=== PATIENT | male | born 1945 | race Caucasian/White ===

== ENCOUNTER 2017-01-04 09:38 | Observation (INO) ==
[2017-01-04] MEDS ORDERED: Dicyclomine 20 MG/2 ML AMPUL IM STA (10:13)
--- NOTE | 2017-01-04 10:16 | Emergency Department Note ---
Disposition Clinical Impression: Abdominal pain, Rectal bleeding, Coagulopathy Disposition: Admitted As Inpatient Condition: Good Abdominal Pain HPI - General Chief Complaint: ED Abdominal Pain Stated Complaint: abd pain Time Seen by Provider: 01/04/17 09:43 Source: patient - History of Present Illness HPI Narrative: Abdominal pain started after a bowel movement last night. Said he had a normal bowel movement, maybe a little bit soft, that was mixed with a red material that he thought was blood. Says it was a 50-50 mixture, not just blood streaking. Pain started after the bowel movement, says he felt like he was being cut with a knife. He points to the supraumbilical region to indicate where the pain is. No nausea or vomiting. No fever. No urinary tract symptoms. He has been taking his Coumadin as prescribed, says he had an INR checked recently. He is on Coumadin for a DVT. Pain was at its most intense when he called the ambulance, currently still present and significant but not as bad as it was earlier this morning. Pain Scale: 8 - Related Data Home Medications Medication Instructions Recorded Confirmed Albuterol Sulfate [Proair 90 mcg IH Q4H PRN 05/08/15 01/04/17 Respiclick] Cholecalciferol (Vitamin D3) 1,000 unit PO DAILY 05/08/15 01/04/17 [Vitamin D3] Exenatide Microspheres [Bydureon 2 mg SQ QWEEK 05/08/15 01/04/17 Pen] Fenofibric Acid (Choline) 135 mg PO DAILY 05/08/15 01/04/17 [Trilipix] Fexofenadine HCl 180 mg PO DAILY 05/08/15 01/04/17 Fluticasone Propionate Nasal 1 aerosol NS DAILY 05/08/15 01/04/17 [Flonase] Furosemide [Lasix] 20 mg PO TID 05/08/15 01/04/17 Gabapentin [Neurontin] 600 mg PO TID 05/08/15 01/04/17 Glimepiride [Amaryl] 4 mg PO DAILY 05/08/15 01/04/17 Loratadine [Claritin] 10 mg PO DAILY 05/08/15 01/04/17 Losartan Potassium [Cozaar] 100 mg PO DAILY 05/08/15 01/04/17 Metformin HCl [Fortamet] 1,000 mg PO BID 05/08/15 01/04/17 Montelukast Sodium [Singulair] 10 mg PO DAILY 05/08/15 01/04/17 Pantoprazole Sodium [Protonix] 40 mg PO DAILY 05/08/15 01/04/17 Phenytoin Sodium Extended 100 mg PO TID 05/08/15 01/04/17 [Phenytek] Potassium Chloride [K-Tab ER] 20 meq PO BID 05/08/15 01/04/17 Pravastatin Sodium [Pravachol] 40 mg PO DAILY 05/08/15 01/04/17 Ranitidine HCl [Zantac] 150 mg PO BID 05/08/15 01/04/17 Warfarin [Coumadin] 4 mg PO SUTUTHFRSA 05/08/15 01/04/17 hydrOXYzine pamoate [HydrOXYzine 25 mg PO TID 05/08/15 01/04/17 Pamoate] Insulin Glargine,Hum.rec.anlog 15 units SQ DAILY 01/04/17 01/04/17 [Toujeo Solostar] Rosuvastatin [Crestor] 40 mg PO HS 01/04/17 01/04/17 Warfarin [Coumadin] 6 mg PO MOWE 01/04/17 01/04/17 Previous Rx's Medication Instructions Recorded Ciprofloxacin [Cipro] 500 mg PO BID #5 tablet 01/09/17 metroNIDAZOLE [Flagyl] 500 mg PO TID #7 tablet 01/09/17 Allergies Allergy/AdvReac Type Severity Reaction Status Date / Time No Known Allergies Allergy Verified 05/08/15 10:26 All systems ED: reviewed and negative except as stated. Abdominal Pain PMH - Past Medical History Medical history: Reports: arthritis, DVT, diabetes, GERD, hyperlipidemia, hypertension, osteoporosis, seizures, venous stasis, other. Denies: CHF, coronary artery disease Psychiatric history: Reports: no psych history - Social History Smoking status: Former smoker Alcohol use: Reports: none Drug use: Reports: none Physical Exam Vital signs noted please see nurse's notes. Gen.: Well-developed, well-nourished patient lying in bed who appears nontoxic. Head: Atraumatic, normocephalic. Eyes: Sclerae anicteric. Conjunctiva pink. ENT: Mucous membranes moist. Heart: Regular rate and rhythm without appreciable murmur. Heart rate between 80 and 110 on the monitor. Lungs: Normal respiratory pattern without respiratory distress, lungs clear to auscultation bilaterally. Abdomen: Soft, nontender, nondistended, no guarding or peritoneal signs. Skin: Warm and dry without rash. Neurologic: Awake, alert with normal speech and mental status. No focal deficits or lateralizing signs. Psychiatric: Appropriate mood and affect. - General Limitations: no limitations General appearance: alert, in no apparent distress Course Course Narrative: Pt checked out to Dr. Andrade at change of shift with work up pending. Vital Signs Temperature 97.5 F L 01/04/17 09:39 Pulse Rate 99 01/04/17 09:39 Respiratory Rate 16 01/04/17 09:39 Blood Pressure 169/91 01/04/17 09:39 O2 Sat by Pulse Oximetry 94 01/04/17 09:39 Temperature 97.9 F 01/09/17 14:56 Pulse Rate 76 01/09/17 14:56 Respiratory Rate 16 01/09/17 14:56 Blood Pressure 123/77 01/09/17 14:56 O2 Sat by Pulse Oximetry 97 01/09/17 14:56 Oxygen Delivery Oxygen Delivery Room Air Abdominal Pain - Lab Data Result diagrams: 01/07/17 02:43 01/07/17 02:43 Lab Results 01/04/17 01/04/17 01/04/17 Range/Units 09:55 09:55 09:55 WBC 10.0 (4.3-11.1) K/mcL RBC 4.64 (4.19-5.50) M/mcL Hgb 13.9 (12.9-16.9) g/dL Hct 39.6 (37.5-50.1) % MCV 85.3 (83.0-100.0) fL MCH 30.0 (28.0-33.3) pg MCHC 35.1 (31.6-35.5) g/dL RDW 12.9 (11.5-14.5) % Plt Count 205 (140-400) K/mcL MPV 11.0 (9.4-12.4) fL PT 23.9 H (9.4-12.1) Seconds INR 2.2 Sodium 135 L (136-145) mEq/L Potassium 4.0 (3.5-4.5) mEq/L Chloride 97 L (98-109) mEq/L Carbon Dioxide 28 (19-29) mEq/L BUN 16 (8-26) mg/dL Creatinine 1.05 (0.72-1.25) mg/dL Est GFR ( Amer) > 60 (> 60) Est GFR (Non-Af Amer) > 60 (> 60) BUN/Creatinine Ratio 15 (6-26) Glucose 394 H (70-99) mg/dL Est Mean Plasma Glucose mg/dl Hemoglobin A1c ( - 5.6) % Calculated Osmolality 298 (280-300) Calcium 9.7 (8.6-10.8) mg/dL Urine Color (Yellow) Urine Clarity (Clear) Urine pH (5.0-8.0) pH Units Ur Specific [place] (1.010-1.025) Urine Protein (Neg-Trace) mg/dL Urine Glucose (UA) (Normal) mg/dL Urine Ketones (Negative) mg/dL Urine Blood (Negative) Urine Nitrite (Negative) Urine Bilirubin (Negative) Urine Urobilinogen (Normal) mg/dL Ur Leukocyte Esterase (Negative) Urine Microscopic RBC (0-3) per hpf Urine Microscopic WBC (0-3) per hpf Ur Squamous Epith Cells (None-Few) per lpf Urine Bacteria (None-Few) per hpf Hyaline Casts (None-Few) per lpf Phenytoin 2.8 L (10-20) mcg/mL Blood Type Antibody Screen 01/04/17 01/04/17 01/04/17 Range/Units 09:55 11:00 11:52 WBC (4.3-11.1) K/mcL RBC (4.19-5.50) M/mcL Hgb (12.9-16.9) g/dL Hct (37.5-50.1) % MCV (83.0-100.0) fL MCH (28.0-33.3) pg MCHC (31.6-35.5) g/dL RDW (11.5-14.5) % Plt Count (140-400) K/mcL MPV (9.4-12.4) fL PT (9.4-12.1) Seconds INR Sodium (136-145) mEq/L Potassium (3.5-4.5) mEq/L Chloride (98-109) mEq/L Carbon Dioxide (19-29) mEq/L BUN (8-26) mg/dL Creatinine (0.72-1.25) mg/dL Est GFR ( Amer) (> 60) Est GFR (Non-Af Amer) (> 60) BUN/Creatinine Ratio (6-26) Glucose (70-99) mg/dL Est Mean Plasma Glucose 326 mg/dl Hemoglobin A1c 13.0 H ( - 5.6) % Calculated Osmolality (280-300) Calcium (8.6-10.8) mg/dL Urine Color Yellow (Yellow) Urine Clarity Cloudy A (Clear) Urine pH 6.5 (5.0-8.0) pH Units Ur Specific [place] 1.028 H (1.010-1.025) Urine Protein 100 H (Neg-Trace) mg/dL Urine Glucose (UA) >=1000 H (Normal) mg/dL Urine Ketones 15 H (Negative) mg/dL Urine Blood Moderate H (Negative) Urine Nitrite Negative (Negative) Urine Bilirubin Negative (Negative) Urine Urobilinogen Normal (Normal) mg/dL Ur Leukocyte Esterase Trace H (Negative) Urine Microscopic RBC 5-15 H (0-3) per hpf Urine Microscopic WBC 30-50 H (0-3) per hpf Ur Squamous Epith Cells Few (None-Few) per lpf Urine Bacteria None Seen (None-Few) per hpf Hyaline Casts None Seen (None-Few) per lpf Phenytoin (10-20) mcg/mL Blood Type O POSITIVE Antibody Screen NEGATIVE
[2017-01-04 10:22] LABS: Hematocrit 39.6 % (37.5-50.1); Hemoglobin 13.9 g/dL (12.9-16.9); Mean Corpuscular HGB Conc 35.1 g/dL (31.6-35.5); Mean Corpuscular Volume 85.3 fL (83.0-100.0); Platelet Count 205 K/mcL (140-400); Red Blood Count 4.64 M/mcL (4.19-5.50); Red Cell Distribution Width 12.9 % (11.5-14.5)
[2017-01-04 10:28] LABS: INR 2.2; Prothrombin Time 23.9 Seconds (9.4-12.1)
[2017-01-04 10:35] LABS: BUN/Creatinine Ratio 15 (6-26); Blood Urea Nitrogen 16 mg/dL (8-26); Calcium 9.7 mg/dL (8.6-10.8); Carbon Dioxide 28 mEq/L (19-29); Chloride 97 mEq/L (98-109); Glucose 394 mg/dL (70-99); Osmolality,Calculated 298 (280-300); Sodium 135 mEq/L (136-145); eGFR For African Americans > 60 (> 60); eGFR For Non-African Americans > 60 (> 60)
[2017-01-04 11:10] LABS: Phenytoin (Dilantin) 2.8 mcg/mL (10-20)
[2017-01-04 11:16] LABS: Bilirubin,Urine Negative (Negative); Blood,Urine Moderate (Negative); Clarity,Urine Cloudy (Clear); Color,Urine Yellow (Yellow); Glucose,Urine (UA) >=1000 mg/dL (Normal); Ketones,Urine 15 mg/dL (Negative); Leukocyte Esterase,Urine Trace (Negative); Nitrite,Urine Negative (Negative); PH,Urine 6.5 pH Units (5.0-8.0); Protein,Urine 100 mg/dL (Neg-Trace); Specific Gravity,Urine 1.028 (1.010-1.025); Urobilinogen,Urine Normal (Normal)
[2017-01-04 11:18] LABS: Bacteria,Urine None Seen per hpf (None-Few); Hyaline Casts,Urine None Seen per lpf (None-Few); Squamous Epithelial Cell,Urine Few per lpf (None-Few)
[2017-01-04 11:26] LABS: WBC,Urine 30-50 per hpf (0-3)
--- NOTE | 2017-01-04 11:40 | Emergency Department Note ---
Disposition Clinical Impression: Rectal bleeding, Coagulopathy Abdominal pain Qualifiers: Abdominal location: lower abdomen, unspecified Qualified Code(s): R10.30 - Lower abdominal pain, unspecified Disposition: Admitted As Inpatient Condition: Fair Time of Disposition: 12:49 General Adult HPI - General Chief complaint: ED Abdominal Pain Stated complaint: abd pain Time Seen by Provider: 01/04/17 09:43 Source: patient Limitations: no limitations - History of Present Illness Pain Scale: 8 - Related Data Home Medications Medication Instructions Recorded Confirmed Albuterol Sulfate [Proair 90 mcg IH AD 05/08/15 05/08/15 Respiclick] Albuterol Sulfate [Proair 90 mcg IH Q4H PRN 05/08/15 05/08/15 Respiclick] Cholecalciferol (Vitamin D3) 1,000 unit PO DAILY 05/08/15 05/08/15 [Vitamin D3] Exenatide Microspheres [Bydureon 2 mg SQ AD 05/08/15 05/08/15 Pen] Fenofibric Acid (Choline) 135 mg PO DAILY 05/08/15 05/08/15 [Trilipix] Fenofibric Acid (Choline) 135 mg PO DAILY 05/08/15 05/08/15 [Trilipix] Fexofenadine HCl 180 mg PO DAILY 05/08/15 05/08/15 Fluticasone Propionate Nasal 1 aerosol NS DAILY 05/08/15 05/08/15 [Flonase] Furosemide [Lasix] 20 mg PO AD 05/08/15 05/08/15 Gabapentin [Neurontin] 600 mg PO TID 05/08/15 05/08/15 Glimepiride [Amaryl] 2 mg PO 0800 05/08/15 05/08/15 Guaifenesin [Mucinex] 600 mg PO BID 05/08/15 05/08/15 Loratadine [Claritin] 10 mg PO DAILY 05/08/15 05/08/15 Losartan Potassium [Cozaar] 100 mg PO DAILY 05/08/15 05/08/15 Metformin HCl [Fortamet] 500 mg PO QID 05/08/15 05/08/15 Montelukast Sodium [Singulair] 10 mg PO DAILY 05/08/15 05/08/15 Pantoprazole Sodium [Protonix] 40 mg PO DAILY 05/08/15 05/08/15 Phenytoin Sodium Extended 100 mg PO TID 05/08/15 05/08/15 [Phenytek] Potassium Chloride [K-Tab ER] 20 meq PO BID 05/08/15 05/08/15 Pravastatin Sodium [Pravachol] 40 mg PO DAILY 05/08/15 05/08/15 Ranitidine HCl [Zantac] 150 mg PO BID 05/08/15 05/08/15 Sulfamethoxazole/Trimeth DS 1 each PO BID 05/08/15 05/08/15 [Bactrim DS] Warfarin [Coumadin] 4 mg PO AD 05/08/15 05/08/15 cephALEXin [Keflex] 500 mg PO QID 05/08/15 05/08/15 hydrOXYzine pamoate [HydrOXYzine 25 mg PO TID 05/08/15 05/08/15 Pamoate] Allergies Allergy/AdvReac Type Severity Reaction Status Date / Time No Known Allergies Allergy Verified 05/08/15 10:26 Past Medical History - Past Medical History Medical history: Reports: arthritis, DVT, diabetes, GERD, hyperlipidemia, hypertension, osteoporosis, seizures, venous stasis, other. Denies: CHF, coronary artery disease Surgical history: Reports: appendectomy, orthopedic, other, other Psychiatric history: Reports: no psych history - Social History Smoking Status: Former smoker Smokeless Tobacco Status: No Alcohol use: Reports: none Drug use: Reports: none Physical Exam - General Limitations: no limitations General appearance: alert, in no apparent distress - Abdominal Exam Abdominal exam: Present: soft, tenderness. Absent: guarding, rebound - Rectal Exam Rectal exam: Present: heme (+) stool Course - Reevaluation(s) Reevaluation #1: 31-year-old who is on blood thinners initially seen by the daysnhft evaluated and orders placed. Patient has had a bloody bowel movement. He is on Coumadin. Physical examination he has mild tenderness across the abdomen. Time: 11:36 - Consultations Consultation #1: Discussed with Murali Padilla, it. Time: 12:48 Consultation #2: Discussed with , will see in consult Time: 12:50 Vital Signs Temperature 97.5 F L 01/04/17 09:39 Pulse Rate 99 01/04/17 09:39 Respiratory Rate 16 01/04/17 09:39 Blood Pressure 169/91 01/04/17 09:39 O2 Sat by Pulse Oximetry 94 01/04/17 09:39 Temperature 97.5 F L 01/04/17 09:39 Pulse Rate 94 01/04/17 12:34 Respiratory Rate 16 01/04/17 12:34 Blood Pressure 169/72 01/04/17 12:34 O2 Sat by Pulse Oximetry 97 01/04/17 12:34 Oxygen Delivery Oxygen Delivery Room Air Medical Decision Making - Lab Data Lab results reviewed: Yes I reviewed the patient's lab results. Result diagrams: 01/04/17 09:55 01/04/17 09:55 Lab Results 01/04/17 01/04/17 01/04/17 Range/Units 09:55 09:55 09:55 WBC 10.0 (4.3-11.1) K/mcL RBC 4.64 (4.19-5.50) M/mcL Hgb 13.9 (12.9-16.9) g/dL Hct 39.6 (37.5-50.1) % MCV 85.3 (83.0-100.0) fL MCH 30.0 (28.0-33.3) pg MCHC 35.1 (31.6-35.5) g/dL RDW 12.9 (11.5-14.5) % Plt Count 205 (140-400) K/mcL MPV 11.0 (9.4-12.4) fL PT 23.9 H (9.4-12.1) Seconds INR 2.2 Sodium 135 L (136-145) mEq/L Potassium 4.0 (3.5-4.5) mEq/L Chloride 97 L (98-109) mEq/L Carbon Dioxide 28 (19-29) mEq/L BUN 16 (8-26) mg/dL Creatinine 1.05 (0.72-1.25) mg/dL Est GFR ( Amer) > 60 (> 60) Est GFR (Non-Af Amer) > 60 (> 60) BUN/Creatinine Ratio 15 (6-26) Glucose 394 H (70-99) mg/dL Calculated Osmolality 298 (280-300) Calcium 9.7 (8.6-10.8) mg/dL Urine Color (Yellow) Urine Clarity (Clear) Urine pH (5.0-8.0) pH Units Ur Specific [place] (1.010-1.025) Urine Protein (Neg-Trace) mg/dL Urine Glucose (UA) (Normal) mg/dL Urine Ketones (Negative) mg/dL Urine Blood (Negative) Urine Nitrite (Negative) Urine Bilirubin (Negative) Urine Urobilinogen (Normal) mg/dL Ur Leukocyte Esterase (Negative) Urine Microscopic RBC (0-3) per hpf Urine Microscopic WBC (0-3) per hpf Ur Squamous Epith Cells (None-Few) per lpf Urine Bacteria (None-Few) per hpf Hyaline Casts (None-Few) per lpf Phenytoin 2.8 L (10-20) mcg/mL Blood Type Antibody Screen 01/04/17 01/04/17 Range/Units 11:00 11:52 WBC (4.3-11.1) K/mcL RBC (4.19-5.50) M/mcL Hgb (12.9-16.9) g/dL Hct (37.5-50.1) % MCV (83.0-100.0) fL MCH (28.0-33.3) pg MCHC (31.6-35.5) g/dL RDW (11.5-14.5) % Plt Count (140-400) K/mcL MPV (9.4-12.4) fL PT (9.4-12.1) Seconds INR Sodium (136-145) mEq/L Potassium (3.5-4.5) mEq/L Chloride (98-109) mEq/L Carbon Dioxide (19-29) mEq/L BUN (8-26) mg/dL Creatinine (0.72-1.25) mg/dL Est GFR ( Amer) (> 60) Est GFR (Non-Af Amer) (> 60) BUN/Creatinine Ratio (6-26) Glucose (70-99) mg/dL Calculated Osmolality (280-300) Calcium (8.6-10.8) mg/dL Urine Color Yellow (Yellow) Urine Clarity Cloudy A (Clear) Urine pH 6.5 (5.0-8.0) pH Units Ur Specific [place] 1.028 H (1.010-1.025) Urine Protein 100 H (Neg-Trace) mg/dL Urine Glucose (UA) >=1000 H (Normal) mg/dL Urine Ketones 15 H (Negative) mg/dL Urine Blood Moderate H (Negative) Urine Nitrite Negative (Negative) Urine Bilirubin Negative (Negative) Urine Urobilinogen Normal (Normal) mg/dL Ur Leukocyte Esterase Trace H (Negative) Urine Microscopic RBC 5-15 H (0-3) per hpf Urine Microscopic WBC 30-50 H (0-3) per hpf Ur Squamous Epith Cells Few (None-Few) per lpf Urine Bacteria None Seen (None-Few) per hpf Hyaline Casts None Seen (None-Few) per lpf Phenytoin (10-20) mcg/mL Blood Type O POSITIVE Antibody Screen NEGATIVE - EKG Data EKG #1 EKG shows normal: sinus rhythm Rate: normal Rhythm: NSR, PAC's Interpretation: no acute changes
[2017-01-04] MEDS ORDERED: Naloxone 0.4 MG/ML INJ IVP PRN (13:41)
[2017-01-04] MEDS ORDERED: Acetaminophen 325 MG TABLET PO PRN (13:41)
[2017-01-04] MEDS ORDERED: Ondansetron 4 MG/2 ML VIAL IVP PRN (13:41)
--- NOTE | 2017-01-04 14:10 | Internal Med History&Physical ---
<Lili Leal - Last Filed: 01/04/17 14:43> Date of Encounter: 01/04/17 Time of Encounter: 14:08 Assessment and Plan (1) Rectal bleeding Current visit: Yes Status: Acute CT abdomen/pelvis showed no acute intra abdominal abnormality identified. cholelithiasis present without acute cholecystitis. moderate fatty infiltration of the liver. patient has severe cynthia umbillical abdominal pain with palpation. patient states he had colonoscopy with "cancerous polyp" removed but no record of this could be found in [employer] or [facility]. ER document states positive stool guiac. Plan: hold warfarin re check INR tomorrow NPO IV PPI BID consult to gastroenterology for possible EGD/colonoscopy. H/H Q6Hr (2) Abdominal pain Current visit: Yes Status: Acute plan as above Qualifiers: Abdominal location: periumbilical Qualified Code(s): R10.33 - Periumbilical pain (3) Diabetes Current visit: Yes Status: Acute sugars in 300s. NPO 10 units Levemir HS with low dose sliding scale, Q4Hour accuchecks. hold metformin and amaryl Qualifiers: Diabetes mellitus type: type 2 Diabetes mellitus complication status: with kidney complications Diabetes mellitus complication detail: with microalbuminuria Diabetes mellitus nursing home insulin use: with intermodal owner operator truck driver use Qualified Code(s): E11.29 - Type 2 diabetes mellitus with other diabetic kidney complication; R80.9 - Proteinuria, unspecified; R80.9 - Proteinuria, unspecified; Z79.4 - medical terminologist (current) use of insulin; Z79.4 - [facility] ( current) use of insulin; Z79.4 - [facility] (current) use of insulin; Z79.4 - medical terminologist (current) use of insulin (4) Seizure disorder Current visit: Yes Status: Acute resume phenytoin (5) Hypertension Current visit: Yes Status: Acute resume losartan. IV hydralazine PRN Qualifiers: Hypertension type: unspecified Qualified Code(s): I10 - Essential (primary ) hypertension (6) UTI (urinary tract infection) Current visit: Yes Status: Acute ceftriaxone day 1 Qualifiers: Urinary tract infection type: site unspecified Hematuria presence: without hematuria Qualified Code(s): N39.0 - Urinary tract infection, site not specified (7) DVT prophylaxis Current visit: Yes Status: Acute EP[facility] pharmacy to dose warfarin. But hold for now in setting of GI bleed. Internal Medicine - H&P: HPI Chief complaint: abdominal pain Admitted From: Emergency Dept Plans for Post Hospital Care: Home History of present illness: Mr. Douglass is a 71 year old male with PMHx of seizure disorder, HLD, type 2 DM, DVT, osteoporosis, HTN, osteoarthritis. patient is a very poor historian. Patient states he lives at home by himself. He arrived to the ED today with chief complaint of abdominal pain 8/10 that started last night. He describes the pain as sharp and he states he has noticed bright red blood in his bowel movements that started last night as well. patient states that he is on warfarin for DVT he had in 2009 after knee surgery. he denies history of Afib. called his PCP office today to confirm why he is on warfarin. Was told that they are not prescribing it to him, but patient states he takes warfarin regularly, and labs showed INR of 2.2. Per [facility], last coumadin clinic note from 2014 states he is on warfarin for "chronic thromboembolism." Patient states he had a colonoscopy in the past with "cancerous polyp" removed, but cannot recall when his colonoscopy was. no records can be found from prior colonoscopies. he admits to having night sweats last night. he denies nausea, vomiting, diarrhea, fever, chills, chest pain, shortness of breath. Past Med Surg Social Fam HX - Past Medical History Medical history: arthritis, DVT, diabetes, GERD, hyperlipidemia, hypertension, osteoporosis, seizures, venous stasis, other Psychiatric history: no psych history - Past Surgical History Surgical History: appendectomy, orthopedic, other, other - Social History Smoking Status: Former smoker Smokeless Tobacco Status: No Alcohol use: none Drug use: none - Family History Mother Living Status: Hx Family Cardiac Disorders: Yes Hx Family Cancer: Yes (breast) Hx Family Endocrine Disorder: Yes Internal Medicine - H&P: Meds Albuterol Sulfate [Proair Respiclick] 90 mcg IH Q4H PRN 05/08/15 [History] Cholecalciferol (Vitamin D3) [Vitamin D3] 1,000 unit PO DAILY 05/08/15 [History] Exenatide Microspheres [Bydureon Pen] 2 mg SQ QWEEK 05/08/15 [History] Fenofibric Acid (Choline) [Trilipix] 135 mg PO DAILY 05/08/15 [History] Fexofenadine HCl 180 mg PO DAILY 05/08/15 [History] Fluticasone Propionate Nasal [Flonase] 1 aerosol NS DAILY 05/08/15 [History] Furosemide [Lasix] 20 mg PO TID 05/08/15 [History] Gabapentin [Neurontin] 600 mg PO TID 05/08/15 [History] Glimepiride [Amaryl] 4 mg PO DAILY 05/08/15 [History] Loratadine [Claritin] 10 mg PO DAILY 05/08/15 [History] Losartan Potassium [Cozaar] 100 mg PO DAILY 05/08/15 [History] Metformin HCl [Fortamet] 1,000 mg PO BID 05/08/15 [History] Montelukast Sodium [Singulair] 10 mg PO DAILY 05/08/15 [History] Pantoprazole Sodium [Protonix] 40 mg PO DAILY 05/08/15 [History] Phenytoin Sodium Extended [Phenytek] 100 mg PO TID 05/08/15 [History] Potassium Chloride [K-Tab ER] 20 meq PO BID 05/08/15 [History] Pravastatin Sodium [Pravachol] 40 mg PO DAILY 05/08/15 [History] Ranitidine HCl [Zantac] 150 mg PO BID 05/08/15 [History] Warfarin [Coumadin] 4 mg PO SUTUTHFRSA 05/08/15 [History] hydrOXYzine pamoate [HydrOXYzine Pamoate] 25 mg PO TID 05/08/15 [History] Insulin Glargine,Hum.rec.anlog [Toujeo Solostar] 15 units SQ DAILY 01/04/17 [ History] Rosuvastatin [Crestor] 40 mg PO HS 01/04/17 [History] Warfarin [Coumadin] 6 mg PO MOWE 01/04/17 [History] 3 Allergy/AdvReac Type Severity Reaction Status Date / Time No Known Allergies Allergy Verified 05/08/15 10:26 All Systems PM: A 10-system review of systems was performed and is negative for pertinent findings except as documented above in the HPI. - Constitutional Constitutional: as per HPI - EENT Eyes: as per HPI Ears: as per HPI Nose, mouth and throat: as per HPI - Breasts Breasts: as per HPI - Cardiovascular Cardiovascular ROS IM: as per HPI - Respiratory Respiratory: as per HPI - Gastrointestinal Gastrointestinal: as per HPI - Genitourinary Genitourinary ROS male: as per HPI - Musculoskeletal Musculoskeletal ROS IM: as per HPI - Integumentary Integumentary IM: as per HPI - Neurological Neurological ROS: as per HPI - Psychiatric Psychiatric: as per HPI - Endocrine Endocrine IM: as per HPI - Hematologic/Lymphatic Hematologic/Lymphatic: as per HPI - Allergic/Immunologic Allergic/Immunologic: as per HPI - Constitutional Vitals: Temp Pulse Resp BP Pulse Ox 97.5 F L 94 16 169/90 97 01/04/17 09:39 01/04/17 12:34 01/04/17 13:19 01/04/17 13:19 01/04/17 12:34 General appearance: Present: A&O X 3, pleasant, no acute distress - Head Head exam: Present: atraumatic, normocephalic - Neck Neck exam general surgery: Present: supple, trachea midline - Respiratory Respiratory exam: Present: CTAB - Cardiovascular Cardiovascular exam: Present: irregular rhythm, +S1, +S2 - GI/Abdominal GI/Abdominal exam: Present: distended, soft, tenderness Additional comments: tenderness in cynthia umbillical area - Extremities Exam Extremities exam: Absent: cyanotic, pedal edema Additional comments: bilateral lower extremities with compression stockings. - Neurological Exam Neurological exam: Present: alert, oriented X3, no focal deficits - Psychiatric Psychiatric exam: Present: normal affect, normal mood - Skin Skin exam: Present: intact Internal Med - H&P Results - Labs CBC & Chem 7: 01/04/17 09:55 01/04/17 09:55 <Jyoti Kitchen - Last Filed: 01/04/17 15:32> Date of Encounter: 01/04/17 Internal Medicine - H&P: HPI History of present illness: Mr. Douglass is a 71 year old male All Systems PM: A 10-system review of systems was performed and is negative for pertinent findings except as documented above in the HPI. - Constitutional Vitals: Temp Pulse Resp BP Pulse Ox 97.6 F 82 16 166/79 94 01/04/17 15:16 01/04/17 15:16 01/04/17 15:16 01/04/17 15:16 01/04/17 15:16 Internal Med - H&P Results - Labs CBC & Chem 7: 01/04/17 09:55 01/04/17 09:55 - Attending Attestation I saw and examined the patient independently. I have discussed with the resident Dr. Leal regarding the management plan. Agree with the documentation. Patient reports blood in stool since last night. Also complaining of abdominal pain. Patient denies chest pain or shortness of breath. On exam, his abdominal is soft, with tenderness but no rebound. Bowel sounds is active. Abdominal CT shows unremarkable. EKG has reviewed, no significant ST-T changes. Guaiac test in emergency room shows positive. GI consult was informed. Keep patient nothing by mouth, IV fluid, IV PPI, hold Coumadin. Patient currently has stable vitals and H&H, will continue closely monitoring.
[2017-01-04] MEDS ORDERED: *HR* Dextrose 50 % in Water (Syg) 50 ML SYRINGE IVP PRN (14:46)
[2017-01-04] MEDS ORDERED: Dextrose Gel 15 GM PO PRN ×2 (14:46)
[2017-01-04] MEDS ORDERED: D5% in Water 1,000 ML IVC PRN (14:46)
[2017-01-04] MEDS: 0.9 % Sodium Chloride 1,000 ML IVC SCH (16:18)
[2017-01-04] MEDS: Gabapentin 300 MG CAPSULE PO SCH ×2 (16:19→20:08)
[2017-01-04] MEDS: Pantoprazole 40 MG VIAL IVP SCH ×2 (16:20→20:08)
[2017-01-04] MEDS: Insulin LISPRO 300 UNITS/3 ML VIAL SQ SCH ×2 (16:25→20:09)
[2017-01-04 17:00] LABS: Hematocrit 39.4 % (37.5-50.1); Hemoglobin 13.6 g/dL (12.9-16.9)
[2017-01-04] MEDS ORDERED: Warfarin perPT PO PRN (18:00)
[2017-01-04] MEDS ORDERED: *HR* Warfarin 3 MG TABLET PO SCH (18:00)
[2017-01-04] MEDS: Insulin DETEMIR 100 UNIT/ML X5UNITS SQ SCH (20:09)
[2017-01-04 22:18] LABS: Hematocrit 38.3 % (37.5-50.1); Hemoglobin 13.3 g/dL (12.9-16.9)
[2017-01-05] MEDS: Insulin LISPRO 300 UNITS/3 ML VIAL SQ SCH ×5 (00:50→17:05)
[2017-01-05 03:54] LABS: Hematocrit 37.6 % (37.5-50.1); Hemoglobin 12.7 g/dL (12.9-16.9)
[2017-01-05 03:58] LABS: INR 1.9; Prothrombin Time 20.4 Seconds (9.4-12.1)
[2017-01-05 04:17] LABS: BUN/Creatinine Ratio 13 (6-26); Blood Urea Nitrogen 13 mg/dL (8-26); Calcium 9.2 mg/dL (8.6-10.8); Carbon Dioxide 26 mEq/L (19-29); Chloride 101 mEq/L (98-109); Glucose 264 mg/dL (70-99); Osmolality,Calculated 293 (280-300); Potassium 3.8 mEq/L (3.5-4.5); Sodium 137 mEq/L (136-145); eGFR For African Americans > 60 (> 60); eGFR For Non-African Americans > 60 (> 60)
[2017-01-05] MEDS: 0.9 % Sodium Chloride 1,000 ML IVC SCH (04:21)
[2017-01-05] MEDS: Loratadine 10 MG TABLET PO SCH (07:54)
[2017-01-05] MEDS: Gabapentin 300 MG CAPSULE PO SCH ×3 (07:54→21:15)
[2017-01-05] MEDS: Pantoprazole 40 MG VIAL IVP SCH ×2 (07:55→21:09)
--- NOTE | 2017-01-05 10:03 | Internal Med Progress Note ---
Date of Encounter: 01/05/17 Time of Encounter: 09:58 - Subjective Interval history: Patient was sitting up in bed watching television he reports that his abdominal pain, nausea, vomiting has resolved he has no complaints at this time - Constitutional Vitals: Temp Pulse Resp BP Pulse Ox 98.2 F 67 18 111/71 97 01/05/17 06:17 01/05/17 06:17 01/05/17 06:17 01/05/17 06:17 01/05/17 06:17 General appearance: Present: A&O X 3, pleasant, no acute distress Exam: Gen.: Vitals noted. No acute distress. AAOx3 HEENT: PERRL/EOMI, oropharynx clear, Normocephalic, atraumatic Neck: Supple. No adenopathy. Cardiac: irregular, no murmur, +S1/S2 Pulmonary: CTA bilaterally, no wheezes, rales or rhonchi, equal chest expansion Abdomen: soft, right upper quadrant tender, positive Alejandro sign, decreased Bowel sounds noted, no guarding Extremities: no BLE edema, nontender calf, no cyanosis or clubbing Neuro: A&Ox3, moves all extremities Psych: Appropriate mood and behavior Internal Medicine: Result - Labs CBC & Chem 7: 01/05/17 02:35 01/05/17 02:35 Labs: Short CBC 01/04/17 01/04/17 01/05/17 Range/Units 16:42 21:57 02:35 Hgb 13.6 13.3 12.7 L (12.9-16.9) g/dL Hct 39.4 38.3 37.6 (37.5-50.1) % BMP 01/05/17 02:35 Sodium 137 Potassium 3.8 Chloride 101 Carbon Dioxide 26 BUN 13 Creatinine 0.99 Glucose 264 H Calcium 9.2 - ABG Interpretation ABG results: PT/INR, D-dimer PT 20.4 Seconds (9.4-12.1) H 01/05/17 02:35 Consult Discharge Plan - Plan Referrals: Anuradha Diaz, STEEPING PRESS OPERATOR [Primary Care Provider] -
--- NOTE | 2017-01-05 10:14 | Discharge Summary ---
<Kalli Lazo - Last Filed: 01/09/17 14:18> Date of Encounter: 01/09/17 Time of Encounter: 13:55 - Discharge Diagnosis (1) Rectal bleeding Priority: Primary Status: Acute (2) Abdominal pain Priority: Secondary Status: Resolved Qualifiers: Abdominal location: periumbilical Qualified Code(s): R10.33 - Periumbilical pain (3) Diabetes Priority: Secondary Status: Acute Qualifiers: Diabetes mellitus type: type 2 Diabetes mellitus complication status: with kidney complications Diabetes mellitus complication detail: with microalbuminuria Diabetes mellitus chcf insulin use: with rubber press operator use Qualified Code(s): E11.29 - Type 2 diabetes mellitus with other diabetic kidney complication; R80.9 - Proteinuria, unspecified; R80.9 - Proteinuria, unspecified; Z79.4 - shelter (current) use of insulin; Z79.4 - shelter ( current) use of insulin; Z79.4 - appliance tester (current) use of insulin; Z79.4 - appliance tester (current) use of insulin (4) Seizure disorder Priority: Secondary Status: Acute (5) Hypertension Priority: Secondary Status: Acute Qualifiers: Hypertension type: unspecified Qualified Code(s): I10 - Essential (primary ) hypertension (6) UTI (urinary tract infection) Priority: Secondary Status: Acute Qualifiers: Urinary tract infection type: site unspecified Hematuria presence: without hematuria Qualified Code(s): N39.0 - Urinary tract infection, site not specified (7) DVT prophylaxis Priority: Secondary Status: Acute - Discharge Medications Prescriptions: Ciprofloxacin [Cipro] 500 mg PO BID #5 tablet metroNIDAZOLE [Flagyl] 500 mg PO TID #7 tablet Home Medications: Albuterol Sulfate [Proair Respiclick] 90 mcg IH Q4H PRN 05/08/15 [History] Cholecalciferol (Vitamin D3) [Vitamin D3] 1,000 unit PO DAILY 05/08/15 [History] Exenatide Microspheres [Bydureon Pen] 2 mg SQ QWEEK 05/08/15 [History] Fenofibric Acid (Choline) [Trilipix] 135 mg PO DAILY 05/08/15 [History] Fexofenadine HCl 180 mg PO DAILY 05/08/15 [History] Fluticasone Propionate Nasal [Flonase] 1 aerosol NS DAILY 05/08/15 [History] Furosemide [Lasix] 20 mg PO TID 05/08/15 [History] Gabapentin [Neurontin] 600 mg PO TID 05/08/15 [History] Glimepiride [Amaryl] 4 mg PO DAILY 05/08/15 [History] Loratadine [Claritin] 10 mg PO DAILY 05/08/15 [History] Losartan Potassium [Cozaar] 100 mg PO DAILY 05/08/15 [History] Metformin HCl [Fortamet] 1,000 mg PO BID 05/08/15 [History] Montelukast Sodium [Singulair] 10 mg PO DAILY 05/08/15 [History] Pantoprazole Sodium [Protonix] 40 mg PO DAILY 05/08/15 [History] Phenytoin Sodium Extended [Phenytek] 100 mg PO TID 05/08/15 [History] Potassium Chloride [K-Tab ER] 20 meq PO BID 05/08/15 [History] Pravastatin Sodium [Pravachol] 40 mg PO DAILY 05/08/15 [History] Ranitidine HCl [Zantac] 150 mg PO BID 05/08/15 [History] Warfarin [Coumadin] 4 mg PO SUTUTHFRSA 05/08/15 [History] hydrOXYzine pamoate [HydrOXYzine Pamoate] 25 mg PO TID 05/08/15 [History] Insulin Glargine,Hum.rec.anlog [Toujeo Solostar] 15 units SQ DAILY 01/04/17 [ History] Rosuvastatin [Crestor] 40 mg PO HS 01/04/17 [History] Warfarin [Coumadin] 6 mg PO MOWE 01/04/17 [History] Ciprofloxacin [Cipro] 500 mg PO BID #5 tablet 01/09/17 [Rx] metroNIDAZOLE [Flagyl] 500 mg PO TID #7 tablet 01/09/17 [Rx] Allergies/Adverse Reactions: 3 Allergy/AdvReac Type Severity Reaction Status Date / Time No Known Allergies Allergy Verified 05/08/15 10:26 Date of admission: 01/04/17 13:02 Primary care physician: Anuradha Diaz CNP Consults: 01/05/17 09:07 Consult to Physical Therapy [CONS] Routine Comment: Evaluate, develop and implement POC Reason for Consult: discharge planning OT [Consult to Occupational Therapy] [CONS] Routine Comment: Evaluate, develop and implement POC Reason for Consult: discharge planning Discharging clinician: Jyoti Kitchen Anticipated date of discharge: 01/09/17 - Patient Status Disposition: Transfer Inpatient Rehab Fac Condition: Good Functional capacity at discharge: uses cane/walker Overall status at discharge: patient is progressing back to baseline - Discharge Instructions Follow Up With: Anuradha Diaz CNP [Primary Care Provider] - Jonathan Amaro MD [Partnered Physician] - Additional Instructions: Finish antibiotics to completion follow-up with gastroenterology and 4-6 weeks for colonoscopy outpatient follow up with PCP in about a week or 2 return to the hospital should you develop fever, chills, worsening abdominal pain, nausea, vomiting Hospital course: Mr. Douglass is a 71 year old male with PMHx of seizure disorder, HLD, type 2 DM, DVT, osteoporosis, HTN, osteoarthritis. patient is a very poor historian. Patient states he lives at home by himself. He arrived to the ED today with chief complaint of abdominal pain 8/10 that started last night. He describes the pain as sharp and he states he has noticed bright red blood in his bowel movements that started last night as well. patient states that he is on warfarin for DVT he had in 2009 after knee surgery. he denies history of Afib. Labs showed INR of 2.2. Per [facility], last coumadin clinic note from 2014 states he is on warfarin for "chronic thromboembolism." Patient states he had a colonoscopy in the past with "cancerous polyp" removed, but cannot recall when his colonoscopy was. no records can be found from prior colonoscopies. He admits to having night sweats last night. he denies nausea, vomiting, diarrhea, fever, chills, chest pain, shortness of breath. The patient was admitted. CT abdomen/pelvis showed no acute intra abdominal abnormality identified. cholelithiasis present without acute cholecystitis. moderate fatty infiltration of the liver. The ER reported a positive stool guiac says warfarin withheld. Urine analysis also showed an asymptomatic urinary tract infection. The patient was started on ciprofloxacin and Flagyl. Gastroenterology was consulted for possible EGD/colonoscopy. The patient reported that the bleeding in his stool had resolved. The patient also reported that his abdominal pain was improving. 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 Gastroenterology evaluated the patient and stated that this was most likely due to ischemic colitis and recommended continuing IV fluids and antibiotics and to follow-up outpatient for colonoscopy in 6 to 8 weeks if no further bleeding. PT/OT evaluated the patient and recommended a short-term nursing facility for rehabilitation to improve mobility and strength. The patient's H&H were monitored and continue to be stable. His diet was advanced as tolerated to full diet. The patient continued to improve and abdominal pain was minimally present in right upper quadrant. The patient was an accepted into a short-term nursing facility for rehabilitation. The patient was informed to continue antibiotics until completion. Is also told to follow-up with gastroenterology for colonoscopy in 6 to 8 weeks. He was also informed to follow his PCP in about a week or 2. Upon discharge he denied fever, chills, chest pain, shortness of breath, abdominal pain, blood in stool, nausea, vomiting. Patient is alert and oriented times 3 with full capacity. He stated clear understanding of the treatment plan and all questions were answered. - Time Spent with Patient Total time spent providing and/or coordinating discharge services: - Constitutional Vitals: Temp Pulse Resp BP Pulse Ox 98.2 F 67 18 111/71 97 01/05/17 06:17 10 06:17 01/05/17 06:17 01/05/17 06:17 01/05/17 06:17 General appearance: Present: A&O X 3, pleasant, no acute distress Exam: Gen.: Vitals noted. No acute distress. AAOx3 HEENT: oropharynx clear, Normocephalic, atraumatic Neck: Supple. No adenopathy. Cardiac: irregular, no murmur, +S1/S2 Pulmonary: CTA bilaterally, no wheezes, rales or rhonchi, equal chest expansion Abdomen: soft, minimal right upper quadrant tender, decreased Bowel sounds noted , no guarding Extremities: no BLE edema, nontender calf, no cyanosis or clubbing Psych: Appropriate mood and behavior <Jyoti Kitchen - Last Filed: 01/09/17 15:10> Date of Encounter: 01/09/17 Procedures/tests Complete & Pending: Procedures Performed prior 72 hours Category Date Time Status EKG [ECG 12 lead ECG] [ECG] Stat Y 01/08/17 07:58 Completed Date of admission: 01/04/17 13:02 Primary care physician: Anuradha Diaz CNP Consults: 01/05/17 09:07 Consult to Physical Therapy [CONS] Routine Comment: Evaluate, develop and implement POC Reason for Consult: discharge planning OT [Consult to Occupational Therapy] [CONS] Routine Comment: Evaluate, develop and implement POC Reason for Consult: discharge planning 01/06/17 10:51 Consult to Shoe Repair Cobbler [CONS] Routine Reason for SW Consult: placement to snf Hospital course: Mr. Douglass is a 71 year old male - Time Spent with Patient Total time spent providing and/or coordinating discharge services: - Constitutional Vitals: Temp Pulse Resp BP Pulse Ox 97.9 F 76 16 123/77 97 01/09/17 14:56 01/09/17 14:56 01/09/17 14:56 01/09/17 14:56 01/09/17 14:56 - Attending Attestation I saw and examined the patient independently. I have discussed with resident Dr Lazo regarding the discharge plan. Agree with the documentation. Patient has no more abdominal pain, nausea vomiting, or diarrhea today. Vitals are stable. Patient was discharged to [facility] and follow-up with GI as outpatient.
[2017-01-05 10:33] LABS: Albumin 2.8 g/dL (3.5-5.0); Albumin/Globulin Ratio 0.7 (1.1-2.2); Bilirubin,Direct 0.2 mg/dL (0.0-0.5); Bilirubin,Indirect 0.3 mg/dL (0.0-1.2); Bilirubin,Total 0.5 mg/dL (0.2-1.2); Total Protein 6.8 g/dL (6.0-8.3)
--- NOTE | 2017-01-05 10:46 | Internal Med Progress Note ---
<Kalli Lazo - Last Filed: 01/05/17 13:38> Date of Encounter: 01/05/17 Time of Encounter: 10:20 - Assessment and plan (1) Rectal bleeding Current Visit: Yes Status: Acute Assessment and plan: CT abdomen/pelvis showed no acute abnormality. Cholelithiasis present without acute cholecystitis. Moderate fatty infiltration of the liver. Patient denies abdominal pain, nausea, vomiting. He admits to passing gas but denies blood in stool. Patient is tender to palpation in the right upper quadrant. Bleeding has resolved hemoglobin stable This is most likely due to ischemic colitis [facility] has seen the patient it would like to follow up with him in about 4 to 6 weeks for colonoscopy -soft diet, advance as tolerated -Cipro day 1 -Flagyl day 1 -IV fluids -continue patients warfarin -continue to monitor H&H -DC tomorrow (2) Abdominal pain Current Visit: Yes Status: Acute Assessment and plan: See above Qualifiers: Abdominal location: periumbilical Qualified Code(s): R10.33 - Periumbilical pain (3) Diabetes Current Visit: Yes Status: Acute Assessment and plan: Patient has a history of diabetes -continue load a sliding scale -continue to monitor glucose Qualifiers: Diabetes mellitus type: type 2 Diabetes mellitus complication status: with kidney complications Diabetes mellitus complication detail: with microalbuminuria Diabetes mellitus alf insulin use: with bed bug exterminator use Qualified Code(s): E11.29 - Type 2 diabetes mellitus with other diabetic kidney complication; R80.9 - Proteinuria, unspecified; R80.9 - Proteinuria, unspecified; Z79.4 - correction (current) use of insulin; Z79.4 - terminal operator ( current) use of insulin; Z79.4 - correction (current) use of insulin; Z79.4 - correction (current) use of insulin (4) Seizure disorder Current Visit: Yes Status: Acute Assessment and plan: Patient has a history of seizures -continue home medication of phenytoin (5) Hypertension Current Visit: Yes Status: Acute Assessment and plan: Patient has a history of hypertension -continue home medications of losartan -hydralazine and PRN Qualifiers: Hypertension type: unspecified Qualified Code(s): I10 - Essential (primary ) hypertension (6) UTI (urinary tract infection) Current Visit: Yes Status: Acute Assessment and plan: Urinalysis indicate presence of UTI -Patient received one dose of ceftriaxone, antibiotics for ischemic colitis will cover UTI Qualifiers: Urinary tract infection type: site unspecified Hematuria presence: without hematuria Qualified Code(s): N39.0 - Urinary tract infection, site not specified (7) DVT prophylaxis Current Visit: Yes Status: Acute Assessment and plan: Continue patient's warfarin - Subjective Interval history: P - Constitutional Vitals: Temp Pulse Resp BP Pulse Ox 97.9 F 77 15 122/73 94 01/05/17 10:22 01/05/17 10:22 01/05/17 10:22 01/05/17 10:22 01/05/17 10:22 General appearance: Present: A&O X 3, pleasant, no acute distress Exam: Gen.: Vitals noted. No acute distress. AAOx3 HEENT: PERRL/EOMI, oropharynx clear, Normocephalic, atraumatic Neck: Supple. No adenopathy. Cardiac: irregular, no murmur, +S1/S2 Pulmonary: CTA bilaterally, no wheezes, rales or rhonchi, equal chest expansion Abdomen: soft, right upper quadrant tender, decreased Bowel sounds noted, no guarding Extremities: no BLE edema, nontender calf, no cyanosis or clubbing Neuro: A&Ox3, moves all extremities Psych: Appropriate mood and behavior Internal Medicine: Result - Labs CBC & Chem 7: 01/05/17 02:35 01/05/17 02:35 Labs: Short CBC 01/04/17 01/04/17 01/05/17 Range/Units 16:42 21:57 02:35 Hgb 13.6 13.3 12.7 L (12.9-16.9) g/dL Hct 39.4 38.3 37.6 (37.5-50.1) % BMP 01/05/17 02:35 Sodium 137 Potassium 3.8 Chloride 101 Carbon Dioxide 26 BUN 13 Creatinine 0.99 Glucose 264 H Calcium 9.2 Liver Function 01/05/17 Range/Units 08:57 Total Bilirubin 0.5 (0.2-1.2) mg/dL Direct Bilirubin 0.2 (0.0-0.5) mg/dL AST 19 (5-34) Units/L ALT 25 (0-55) Units/L Alkaline Phosphatase 95 (38-126) Units/L Albumin 2.8 L (3.5-5.0) g/dL - ABG Interpretation ABG results: PT/INR, D-dimer PT 20.4 Seconds (9.4-12.1) H 01/05/17 02:35 Consult Discharge Plan - Plan Referrals: Anuradha Diaz, AUTO TUNE UP MECHANIC [Primary Care Provider] - <Jyoti Kitchen - Last Filed: 01/05/17 16:24> Date of Encounter: 01/05/17 - Constitutional Vitals: Temp Pulse Resp BP Pulse Ox 97.7 F 100 18 152/74 95 01/05/17 14:35 01/05/17 14:35 01/05/17 14:35 01/05/17 14:35 01/05/17 14:35 Internal Medicine: Result - Labs CBC & Chem 7: 01/05/17 02:35 01/05/17 02:35 Labs: Short CBC 01/04/17 01/04/17 01/05/17 Range/Units 16:42 21:57 02:35 Hgb 13.6 13.3 12.7 L (12.9-16.9) g/dL Hct 39.4 38.3 37.6 (37.5-50.1) % BMP 01/05/17 02:35 Sodium 137 Potassium 3.8 Chloride 101 Carbon Dioxide 26 BUN 13 Creatinine 0.99 Glucose 264 H Calcium 9.2 Liver Function 01/05/17 Range/Units 08:57 Total Bilirubin 0.5 (0.2-1.2) mg/dL Direct Bilirubin 0.2 (0.0-0.5) mg/dL AST 19 (5-34) Units/L ALT 25 (0-55) Units/L Alkaline Phosphatase 95 (38-126) Units/L Albumin 2.8 L (3.5-5.0) g/dL - ABG Interpretation ABG results: PT/INR, D-dimer PT 20.4 Seconds (9.4-12.1) H 01/05/17 02:35 - Attending Attestation I have seen and examined the patient independently. I have discussed with the resident Dr Lazo regarding the management plan, agreed with the documentation. Patient has less abdominal pain today. No further rectal bleeding/bloody diarrhea. Vitals are stable. GI consult appreciated, consider ischemic colitis. Will start IV Cipro and Flagyl, advance diet gradually. Patient will follow-up with GI as outpatient after discharge.
[2017-01-05] MEDS: metroNIDAZOLE 500 MG TABLET PO SCH ×3 (11:31→21:13)
--- NOTE | 2017-01-05 12:58 | Gastroenterology Consult Note ---
<Angelique Valverde - Last Filed: 01/05/17 15:05> Date of Encounter: 01/05/17 Time of Encounter: 10:00 - Assessment and plan (1) Rectal bleeding Current Visit: Yes Status: Acute Assessment and plan: Pt presents with acute onset of abdominal pain and bright red rectal bleeding. Most likely related to ischemic colitis. Bleeding has resolved and hemoglobin is stable. Would recommend continuing IVF and antibiotics, outpatient colonoscopy in 6-8 weeks if no further bleeding. (2) Ischemic colitis Current Visit: Yes Status: Acute Assessment and plan: Likely cause of bleeding, bleeding has stopped, pain is better will follow with outpatient colonoscopy in 6-8 weeks. - Time Spent With Patient Total time spent is greater than 50% in coordination of care (as documented) at patient's floor/unit and/or counseling patient: GI History of Present Illness - Data of Consult Patient: new to practice Consult date: 01/05/17 Requesting Physician: Jyoti Kitchen MD - Consult Narrative Reason for consult: abdominal pain and bright red rectal bleeding History of present illness: Mr. Douglass is a 71 year old male who presented with complaints of abdominal pain and bright red rectal bleeding. He has a PMHx of seizure disorder, HLD, type 2 DM, DVT, osteoporosis, HTN, and osteoarthritis. He is a very poor historian. He states the pain started the night before last, sharp pain worse on the right then he noticed bright red rectal bleeding. He denies nausea or vomiting. He denies fever or chills, diarrhea or constipation.. He has occasional GERD and dysphagia. He is on chronic warfarin regimen for "chronic thromboembolism", no history of A-fib. . Labs showed INR of 1.9, WBC 10, HGB 12.1, t bili 0.2, AST 19, ALT 25, albumin 2.8, Hgb A1c 13. CT abdomen was done and showed Cholelithiasis without finding of acute cholecystitis. Moderate fatty infiltration of the liver. Mild bulging of the midline abdominal wall. Patient states he had a colonoscopy 8 years ago and "cancerous polyp" was removed, but cannot recall when his colonoscopy was. No records of colonoscopy in [facility] or [facility]. Colonoscopy: 8 years ago polyp EGD:denies NSAIDS: ASA Anticoagulants: coumadin Past Med Surg Social Fam HX - Past Medical History Medical history: arthritis, DVT, diabetes, GERD, hyperlipidemia, hypertension, osteoporosis, seizures, venous stasis, other Psychiatric history: no psych history - Past Surgical History Surgical History: appendectomy, orthopedic, other, other - Social History Smoking Status: Former smoker Smokeless Tobacco Status: No Alcohol use: none Drug use: none - Family History Mother Living Status: Hx Family Cardiac Disorders: Yes Hx Family Cancer: Yes (breast) Hx Family Endocrine Disorder: Yes Review of Systems: GI: as per [place] [facility]: denies fever, has some chills EYES: denies yellow discoloration ENT: denies pain with swallowing, occasioanl difficulty swallowing CARDIO: denies chest pain, palpitations RESP: Shortness of breath with exertion : denies change in color of urine NEURO: chronic weakness HEME: Denies any bruising MS: chronic joint pain and back pain. DERM: denies rash or itching PSYCH: Denies history of anxiety or depression - Constitutional Vitals: Temp Pulse Resp BP Pulse Ox 97.9 F 77 15 122/73 94 01/05/17 10:22 01/05/17 10:22 01/05/17 10:22 01/05/17 10:22 01/05/17 10:22 Exam: CONSTITUTIONAL:~alert, no acute distress.~HEAD:~normocephalic.~EYES:~no jaundice.~NECK:~no obvious swelling.~HEART:~regular rate and rhythm, no murmurs. ~LUNGS:~fair air exchange bilaterally, ~ABDOMEN:~non distended, soft, tender to RLQ, no masses pulpable, no organomegaly.~RECTAL EXAM:~Deferred.~EXTREMITIES:~ no clubbing, or cyanosis, 1+ BLE edema, SKIN:~pallor noted, no stigmata of chronic liver disease.~NEUROLOGIC:~no obvious focal defect.~~~~ Results - Labs CBC & Chem 7: 01/05/17 02:35 01/05/17 02:35 Labs: Last Result Calcium 9.2 mg/dL (8.6-10.8) 01/05/17 02:35 Entire Visit Hgb 12.7 g/dL (12.9-16.9) L 01/05/17 02:35 Hct 37.6 % (37.5-50.1) 01/05/17 02:35 PT 20.4 Seconds (9.4-12.1) H 01/05/17 02:35 Total Bilirubin 0.5 mg/dL (0.2-1.2) 01/05/17 08:57 AST 19 Units/L (5-34) 01/05/17 08:57 ALT 25 Units/L (0-55) 01/05/17 08:57 - ABG ABG results: PT/INR, D-dimer PT 20.4 Seconds (9.4-12.1) H 01/05/17 02:35 Consult Discharge Plan - Plan Referrals: Anuradha Diaz, HELPDESK TECHNICIAN [Primary Care Provider] - <Meryl Tesfaey - Last Filed: 01/05/17 17:52> Date of Encounter: 01/05/17 Time of Encounter: 17:40 - Time Spent With Patient Total time spent is greater than 50% in coordination of care (as documented) at patient's floor/unit and/or counseling patient: GI History of Present Illness - Data of Consult Requesting Physician: Jyoti Kitchen MD - Consult Narrative History of present illness: Mr. Douglass is a 71 year old male - Constitutional Vitals: Temp Pulse Resp BP Pulse Ox 97.7 F 100 18 152/74 95 01/05/17 14:35 01/05/17 14:35 01/05/17 14:35 01/05/17 14:35 01/05/17 14:35 Results - Labs CBC & Chem 7: 01/05/17 02:35 01/05/17 02:35 Labs: Last Result Calcium 9.2 mg/dL (8.6-10.8) 01/05/17 02:35 Entire Visit Hgb 12.7 g/dL (12.9-16.9) L 01/05/17 02:35 Hct 37.6 % (37.5-50.1) 01/05/17 02:35 PT 20.4 Seconds (9.4-12.1) H 01/05/17 02:35 Total Bilirubin 0.5 mg/dL (0.2-1.2) 01/05/17 08:57 AST 19 Units/L (5-34) 01/05/17 08:57 ALT 25 Units/L (0-55) 01/05/17 08:57 - ABG ABG results: PT/INR, D-dimer PT 20.4 Seconds (9.4-12.1) H 01/05/17 02:35 - Attending Attestation I examined this patient and my medical decision-making was reviewed with the Resident Physician. I agree with the documented findings, disposition and treatment plan as described except to the extent set forth below.
--- NOTE | 2017-01-05 13:58 | Event Note ---
Date of Encounter: 01/05/17 Time of Encounter: 13:55 Spoke with Patient's PCP Anuradha Diaz CNP on the phone. she states that this patient is on coumadin for recurrent DVTs in the past. He also has a history of PE. She is not sure where the patient gets his coumadin filled, as she had recently newly inherited this patient from another provider. Patient states he goes to the coumadin clinic. Since he is not having any invasive procedures done during this hospitalization, we will continue his coumadin dosing per pharmacy.
[2017-01-05] MEDS ORDERED: *HR* Warfarin 4 MG TABLET PO SCH (18:00)
[2017-01-05] MEDS ORDERED: Warfarin perPT PO PRN (18:00)
[2017-01-05] MEDS ORDERED: *HR* Warfarin 3 MG TABLET PO ONE (18:00)
--- NOTE | 2017-01-05 19:04 | Electrocardiograph Report ---
[place] [id number] Test Date: 2017-01-04 Pat Name: Mesfin Douglass Department: 103 Room: 3A15 Gender: M Bilingual Operator: AM : 1945 Requested By: Cal Wilcox Order Number: [id number] Reading MD: Bhavik Matthews MD Measurements Intervals [place] Rate: 95 P: 35 SD: 192 QRS: 40 QRSD: 111 T: 19 QT: 353 QTc: 406 Interpretive Statements SINUS RHYTHM WITH FREQUENT SUPRAVENTRICULAR PREMATURE COMPLEXES Electronically Signed On 01-05-2017 19:03:14 EDT by Bhavik Matthews MD
[2017-01-05] MEDS ORDERED: Insulin LISPRO 300 UNITS/3 ML VIAL SQ SCH (21:00)
[2017-01-05] MEDS: Insulin DETEMIR 100 UNIT/ML X5UNITS SQ SCH (22:20)
[2017-01-06 07:41] LABS: INR 1.5; Prothrombin Time 16.7 Seconds (9.4-12.1)
[2017-01-06 07:44] LABS: Basophils % 0.4 %; Eosinophils # 0.5 K/mcL (0.0-0.6); Eosinophils % 6.3 %; Hematocrit 35.7 % (37.5-50.1); Immature Granulocytes % 0.7 % (0-4); Lymphocytes # 1.2 K/mcL (0.6-4.6); Lymphocytes % 16.1 %; Mean Corpuscular HGB Conc 33.6 g/dL (31.6-35.5); Mean Corpuscular Hemoglobin 29.6 pg (28.0-33.3); Mean Corpuscular Volume 88.1 fL (83.0-100.0); Mean Platelet Volume 10.7 fL (9.4-12.4); Monocytes % 14.2 %; Neutrophils # 4.4 K/mcL (1.6-8.9); Platelet Count 186 K/mcL (140-400); Red Blood Count 4.05 M/mcL (4.19-5.50); Red Cell Distribution Width 13.4 % (11.5-14.5); Segmented Neutrophils % 62.3 %
[2017-01-06 07:58] LABS: BUN/Creatinine Ratio 14 (6-26); Blood Urea Nitrogen 14 mg/dL (8-26); Calcium 9.3 mg/dL (8.6-10.8); Carbon Dioxide 28 mEq/L (19-29); Chloride 101 mEq/L (98-109); Glucose 333 mg/dL (70-99); Osmolality,Calculated 294 (280-300); Potassium 4.3 mEq/L (3.5-4.5); Sodium 135 mEq/L (136-145); eGFR For African Americans > 60 (> 60); eGFR For Non-African Americans > 60 (> 60)
--- NOTE | 2017-01-06 08:33 | Internal Med Progress Note ---
<Kalli Lazo - Last Filed: 01/06/17 14:50> Date of Encounter: 01/06/17 Time of Encounter: 08:30 - Assessment and plan (1) Rectal bleeding Current Visit: Yes Status: Acute Assessment and plan: CT abdomen/pelvis showed no acute abnormality. Cholelithiasis present without acute cholecystitis. Moderate fatty infiltration of the liver. Patient denies abdominal pain, nausea, vomiting. He admits to passing gas but denies blood in stool. Patient is tender to palpation in the right lower quadrant. Bleeding has resolved hemoglobin stable he complains of not passing a bowel movement a or today and would like something for that This is most likely due to ischemic colitis GYudith has seen the patient it would like to follow up with him in about 4 to 6 weeks for colonoscopy -Cipro day 2 (total of 7 days) -Flagyl day 2 (total of 7 days) -Advanced to regular diet -ordered dulcolax -continue patients warfarin -continue to monitor H&H -DC to SNF by Monday pending insurance approval (2) Abdominal pain Current Visit: Yes Status: Acute Assessment and plan: See above Qualifiers: Abdominal location: periumbilical Qualified Code(s): R10.33 - Periumbilical pain (3) Weakness Current Visit: Yes Status: Acute Assessment and plan: 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 PT/OT evaluate patient recommends SNF for rehab with PT/OT Social work onboard working on transfer to SNF (4) Diabetes Current Visit: Yes Status: Acute Assessment and plan: Patient has a history of diabetes blood sugars have been high and 300s -continue medium dose sliding scale -Levemir added -continue to closely monitor glucose Qualifiers: Diabetes mellitus type: type 2 Diabetes mellitus complication status: with kidney complications Diabetes mellitus complication detail: with microalbuminuria Diabetes mellitus test preparation tutor insulin use: with [facility] use Qualified Code(s): E11.29 - Type 2 diabetes mellitus with other diabetic kidney complication; R80.9 - Proteinuria, unspecified; R80.9 - Proteinuria, unspecified; Z79.4 - crude unit operator (current) use of insulin; Z79.4 - alf ( current) use of insulin; Z79.4 - alf (current) use of insulin; Z79.4 - crude unit operator (current) use of insulin (5) Seizure disorder Current Visit: Yes Status: Acute Assessment and plan: Patient has a history of seizures no seizure at this time -continue home medication of phenytoin (6) Hypertension Current Visit: Yes Status: Acute Assessment and plan: Patient has a history of hypertension -continue home medications of losartan -hydralazine and PRN Qualifiers: Hypertension type: unspecified Qualified Code(s): I10 - Essential (primary ) hypertension (7) UTI (urinary tract infection) Current Visit: Yes Status: Acute Assessment and plan: Urinalysis indicate presence of UTI patient is asymptomatic -Patient received one dose of ceftriaxone, antibiotics for ischemic colitis will cover UTI Qualifiers: Urinary tract infection type: site unspecified Hematuria presence: without hematuria Qualified Code(s): N39.0 - Urinary tract infection, site not specified (8) DVT prophylaxis Current Visit: Yes Status: Acute Assessment and plan: Patient's PCP was called and she reported that the patient has a history of recurrent DVT's Continue patient's warfarin - Subjective Interval history: Patient was sitting on the side of the bed his only complaint is that he did not have a bowel movement today or yesterday and would like something to help him he reports he does have some minimal regular quadrant abdominal pain he denies fever, chills, nausea, vomiting, hematechezia, melena he has no other complaints - Constitutional Vitals: Temp Pulse Resp BP Pulse Ox 97.6 F 80 15 131/76 94 01/06/17 07:04 01/06/17 07:04 01/06/17 07:04 01/06/17 07:04 01/06/17 07:04 General appearance: Present: A&O X 3, pleasant, no acute distress Exam: Gen.: Vitals noted. No acute distress. AAOx3 HEENT: oropharynx clear, Normocephalic, atraumatic Cardiac: irregular, no murmur, +S1/S2 Pulmonary: CTA bilaterally, no wheezes, rales or rhonchi, equal chest expansion Abdomen: soft, minimal right lower quadrant tender, Bowel sounds noted, no guarding Extremities: + BLE edema, nontender calf, no cyanosis or clubbing Neuro: A&Ox3, moves all extremities Psych: Appropriate mood and behavior Internal Medicine: Result - Labs CBC & Chem 7: 01/06/17 07:27 01/06/17 07:27 Labs: Short CBC 01/06/17 Range/Units 07:27 WBC 7.1 (4.3-11.1) K/mcL Hgb 12.0 L (12.9-16.9) g/dL Hct 35.7 L (37.5-50.1) % Plt Count 186 (140-400) K/mcL Neutrophils # 4.4 (1.6-8.9) K/mcL BMP 01/06/17 07:27 Sodium 135 L Potassium 4.3 Chloride 101 Carbon Dioxide 28 BUN 14 Creatinine 1.02 Glucose 333 H Calcium 9.3 Liver Function 01/05/17 Range/Units 08:57 Total Bilirubin 0.5 (0.2-1.2) mg/dL Direct Bilirubin 0.2 (0.0-0.5) mg/dL AST 19 (5-34) Units/L ALT 25 (0-55) Units/L Alkaline Phosphatase 95 (38-126) Units/L Albumin 2.8 L (3.5-5.0) g/dL - ABG Interpretation ABG results: PT/INR, D-dimer PT 16.7 Seconds (9.4-12.1) H 01/06/17 07:27 Consult Discharge Plan - Plan Referrals: Anuradha Diaz, MOLDING ROOM SUPERVISOR [Primary Care Provider] - <Jyoti Kitchen - Last Filed: 01/06/17 16:20> Date of Encounter: 01/06/17 - Constitutional Vitals: Temp Pulse Resp BP Pulse Ox 97.7 F 60 16 124/76 96 01/06/17 11:08 01/06/17 11:08 01/06/17 11:08 01/06/17 11:08 01/06/17 11:08 Internal Medicine: Result - Labs CBC & Chem 7: 01/06/17 07:27 01/06/17 07:27 Labs: Short CBC 01/06/17 Range/Units 07:27 WBC 7.1 (4.3-11.1) K/mcL Hgb 12.0 L (12.9-16.9) g/dL Hct 35.7 L (37.5-50.1) % Plt Count 186 (140-400) K/mcL Neutrophils # 4.4 (1.6-8.9) K/mcL BMP 01/06/17 07:27 Sodium 135 L Potassium 4.3 Chloride 101 Carbon Dioxide 28 BUN 14 Creatinine 1.02 Glucose 333 H Calcium 9.3 - ABG Interpretation ABG results: PT/INR, D-dimer PT 16.7 Seconds (9.4-12.1) H 01/06/17 07:27 - Attending Attestation I have seen and examined the patient independently. I have discussed with resident Dr Lazo regarding the management plan. Agree with the documentation. Patient has less abdominal pain. No further rectal bleeding. Vital signs stable. Will continue IV Cipro and Flagyl. PTOT evaluation recommend ECF discharge. Waiting for insurance approval.
[2017-01-06] MEDS ORDERED: Insulin LISPRO 300 UNITS/3 ML VIAL SQ SCH ×2 (08:55)
[2017-01-06] MEDS: Loratadine 10 MG TABLET PO SCH (09:01)
[2017-01-06] MEDS: metroNIDAZOLE 500 MG TABLET PO SCH ×3 (09:02→20:56)
[2017-01-06] MEDS: Gabapentin 300 MG CAPSULE PO SCH ×3 (09:02→20:57)
[2017-01-06] MEDS: Insulin LISPRO 300 UNITS/3 ML VIAL SQ SCH ×3 (09:04→20:57)
[2017-01-06] MEDS: Pantoprazole 40 MG VIAL IVP SCH (09:06)
[2017-01-06] MEDS: Insulin DETEMIR 100 UNIT/ML X5UNITS SQ SCH ×2 (10:08→20:56)
[2017-01-06] MEDS ORDERED: *HR* Warfarin 3 MG TABLET PO ONE (18:00)
[2017-01-07 03:46] LABS: Basophils % 0.6 %; Eosinophils # 0.5 K/mcL (0.0-0.6); Eosinophils % 7.5 %; Hematocrit 35.1 % (37.5-50.1); Hemoglobin 11.7 g/dL (12.9-16.9); Immature Granulocytes % 0.6 % (0-4); Lymphocytes # 1.3 K/mcL (0.6-4.6); Lymphocytes % 18.9 %; Mean Corpuscular HGB Conc 33.3 g/dL (31.6-35.5); Mean Corpuscular Hemoglobin 29.3 pg (28.0-33.3); Mean Platelet Volume 11.1 fL (9.4-12.4); Monocytes % 14.6 %; Neutrophils # 4.1 K/mcL (1.6-8.9); Platelet Count 197 K/mcL (140-400); Red Blood Count 3.99 M/mcL (4.19-5.50); Red Cell Distribution Width 13.3 % (11.5-14.5); Segmented Neutrophils % 57.8 %
[2017-01-07 04:00] LABS: BUN/Creatinine Ratio 12 (6-26); Blood Urea Nitrogen 12 mg/dL (8-26); Calcium 9.5 mg/dL (8.6-10.8); Carbon Dioxide 29 mEq/L (19-29); Chloride 101 mEq/L (98-109); Glucose 264 mg/dL (70-99); Osmolality,Calculated 293 (280-300); Sodium 137 mEq/L (136-145); eGFR For African Americans > 60 (> 60); eGFR For Non-African Americans > 60 (> 60)
[2017-01-07 04:01] LABS: INR 1.5; Prothrombin Time 15.9 Seconds (9.4-12.1)
[2017-01-07] MEDS: Insulin LISPRO 300 UNITS/3 ML VIAL SQ SCH ×4 (09:23→20:28)
[2017-01-07] MEDS: Loratadine 10 MG TABLET PO SCH (09:24)
[2017-01-07] MEDS: metroNIDAZOLE 500 MG TABLET PO SCH ×3 (09:24→20:14)
[2017-01-07] MEDS: Insulin DETEMIR 100 UNIT/ML X5UNITS SQ SCH ×3 (09:25→20:29)
[2017-01-07] MEDS: Gabapentin 300 MG CAPSULE PO SCH ×3 (09:25→20:13)
--- NOTE | 2017-01-07 14:33 | Internal Med Progress Note ---
<JaviLili denton - Last Filed: 01/07/17 14:44> Date of Encounter: 01/07/17 Time of Encounter: 14:32 - Assessment and plan (1) Rectal bleeding Current Visit: Yes Status: Acute Assessment and plan: CT abdomen/pelvis showed no acute abnormality. Cholelithiasis present without acute cholecystitis. Moderate fatty infiltration of the liver. Patient denies abdominal pain, nausea, vomiting. He admits to passing gas but denies blood in stool. Patient is tender to palpation in the right lower quadrant. Bleeding has resolved hemoglobin stable This is most likely due to ischemic colitis GYudith has seen the patient it would like to follow up with him in about 4 to 6 weeks for colonoscopy -Cipro day 3 (total of 7 days) -Flagyl day 3 (total of 7 days) -Advanced to regular diet -continue to monitor H&H -DC to SNF by Monday pending insurance approval (2) Abdominal pain Current Visit: Yes Status: Resolved Assessment and plan: See above Qualifiers: Abdominal location: periumbilical Qualified Code(s): R10.33 - Periumbilical pain (3) Diabetes Current Visit: Yes Status: Acute Assessment and plan: Patient has a history of diabetes blood sugars have been high and 300s -continue high dose sliding scale basal insulin increased to 15 units BID Qualifiers: Diabetes mellitus type: type 2 Diabetes mellitus complication status: with kidney complications Diabetes mellitus complication detail: with microalbuminuria Diabetes mellitus parts counterman insulin use: with shelter use Qualified Code(s): E11.29 - Type 2 diabetes mellitus with other diabetic kidney complication; R80.9 - Proteinuria, unspecified; R80.9 - Proteinuria, unspecified; Z79.4 - moth exterminator (current) use of insulin; Z79.4 - jail ( current) use of insulin; Z79.4 - moth exterminator (current) use of insulin; Z79.4 - moth exterminator (current) use of insulin (4) Seizure disorder Current Visit: Yes Status: Acute Assessment and plan: Patient has a history of seizures no seizure at this time continue phenytoin (5) Hypertension Current Visit: Yes Status: Acute Assessment and plan: Patient has a history of hypertension -continue home medications of losartan -hydralazine and PRN Qualifiers: Hypertension type: unspecified Qualified Code(s): I10 - Essential (primary ) hypertension (6) UTI (urinary tract infection) Current Visit: Yes Status: Acute Assessment and plan: Urinalysis indicate presence of UTI patient is asymptomatic -Patient received one dose of ceftriaxone, antibiotics for ischemic colitis will cover UTI Qualifiers: Urinary tract infection type: site unspecified Hematuria presence: without hematuria Qualified Code(s): N39.0 - Urinary tract infection, site not specified (7) DVT prophylaxis Current Visit: Yes Status: Acute Assessment and plan: pharmacy dosing warfarin. - Subjective Interval history: 71M evaluated at bedside. he denies nausea, vomiting, diarrhea, fever, chills, chest pain, shortness of breath. he denies any new complaints today. - Constitutional Vitals: Temp Pulse Resp BP Pulse Ox 98.1 F 61 16 129/75 95 01/07/17 10:58 01/07/17 10:58 01/07/17 10:58 01/07/17 10:58 01/07/17 10:58 General appearance: Present: A&O X 3, pleasant, no acute distress - Head Head exam: Present: atraumatic, normocephalic - Neck Neck exam general surgery: Present: supple, trachea midline - Respiratory Respiratory exam: Present: CTAB - Cardiovascular Additional comments: frequent PVCs - GI/Abdominal GI/Abdominal exam: Present: normal bowel sounds, soft. Absent: distended, tenderness - Extremities Exam Extremities exam: Absent: pedal edema Additional comments: discoloration present on both bilateral lower extremities. - Psychiatric Psychiatric exam: Present: normal affect, normal mood - Skin Skin exam: Present: intact Internal Medicine: Result - Labs CBC & Chem 7: 01/07/17 02:43 01/07/17 02:43 Labs: Short CBC 01/07/17 Range/Units 02:43 WBC 7.1 (4.3-11.1) K/mcL Hgb 11.7 L (12.9-16.9) g/dL Hct 35.1 L (37.5-50.1) % Plt Count 197 (140-400) K/mcL Neutrophils # 4.1 (1.6-8.9) K/mcL BMP 01/07/17 02:43 Sodium 137 Potassium 4.0 Chloride 101 Carbon Dioxide 29 BUN 12 Creatinine 0.98 Glucose 264 H Calcium 9.5 - ABG Interpretation ABG results: PT/INR, D-dimer PT 15.9 Seconds (9.4-12.1) H 01/07/17 02:43 Consult Discharge Plan - Plan Referrals: Anuradha Diaz, PROTOTYPE DEICER ASSEMBLER [Primary Care Provider] - <ImtiazJyoti - Last Filed: 01/07/17 17:00> Date of Encounter: 01/07/17 - Constitutional Vitals: Temp Pulse Resp BP Pulse Ox 98.0 F 82 18 134/80 96 01/07/17 16:27 01/07/17 16:27 01/07/17 16:27 01/07/17 16:27 01/07/17 16:27 Internal Medicine: Result - Labs CBC & Chem 7: 01/07/17 02:43 01/07/17 02:43 Labs: Short CBC 01/07/17 Range/Units 02:43 WBC 7.1 (4.3-11.1) K/mcL Hgb 11.7 L (12.9-16.9) g/dL Hct 35.1 L (37.5-50.1) % Plt Count 197 (140-400) K/mcL Neutrophils # 4.1 (1.6-8.9) K/mcL BMP 01/07/17 02:43 Sodium 137 Potassium 4.0 Chloride 101 Carbon Dioxide 29 BUN 12 Creatinine 0.98 Glucose 264 H Calcium 9.5 - ABG Interpretation ABG results: PT/INR, D-dimer PT 15.9 Seconds (9.4-12.1) H 01/07/17 02:43 - Attending Attestation I have seen and examined the patient independently. I have discussed with resident Dr. Leal regarding the management plan. Agree with the documentation. Patient has less abdominal pain. No further rectal bleeding. Vital signs and hemoglobin stable. Continue Cipro and Flagyl to finish a 7 day course. Adjust insulin dose for better glucose control. Continue closely monitor patient.
[2017-01-07] MEDS ORDERED: *HR* Warfarin 3 MG TABLET PO ONE (18:00)
[2017-01-08 08:09] LABS: INR 1.6; Prothrombin Time 17.9 Seconds (9.4-12.1)
[2017-01-08 08:19] LABS: Ionized Calcium 1.25 mmol/L (1.15-1.35)
[2017-01-08 08:22] LABS: Magnesium 1.4 mg/dL (1.6-2.6)
[2017-01-08] MEDS: Insulin LISPRO 300 UNITS/3 ML VIAL SQ SCH ×4 (08:30→21:03)
[2017-01-08] MEDS: Loratadine 10 MG TABLET PO SCH (08:31)
[2017-01-08] MEDS: Lactobacillus 1 EACH CAP.SPRINK PO SCH (08:33)
[2017-01-08] MEDS: metroNIDAZOLE 500 MG TABLET PO SCH ×3 (08:34→20:52)
[2017-01-08] MEDS: Gabapentin 300 MG CAPSULE PO SCH ×3 (08:35→20:51)
[2017-01-08] MEDS: Insulin DETEMIR 100 UNIT/ML X5UNITS SQ SCH ×2 (09:38→21:03)
--- NOTE | 2017-01-08 10:04 | Internal Med Progress Note ---
<JaviLili denton - Last Filed: 01/08/17 10:01> Date of Encounter: 01/08/17 Time of Encounter: 10:03 - Assessment and plan (1) Rectal bleeding Current Visit: Yes Status: Acute Assessment and plan: CT abdomen/pelvis showed no acute abnormality. Cholelithiasis present without acute cholecystitis. Moderate fatty infiltration of the liver. Patient denies abdominal pain, nausea, vomiting. He admits to passing gas but denies blood in stool. Patient is tender to palpation in the right lower quadrant. Bleeding has resolved hemoglobin stable This is most likely due to ischemic colitis GYudith has seen the patient it would like to follow up with him in about 4 to 6 weeks for colonoscopy -Cipro day 4 (total of 7 days) -Flagyl day 4 (total of 7 days) -Advanced to regular diet -continue to monitor H&H -DC to SNF by Monday pending insurance approval (2) Abdominal pain Current Visit: Yes Status: Resolved Assessment and plan: See above Qualifiers: Abdominal location: periumbilical Qualified Code(s): R10.33 - Periumbilical pain (3) PAC (premature atrial contraction) Current Visit: Yes Status: Acute Assessment and plan: EKG shows multiple PACs. Started metoprolol 12.5 BID (4) Diabetes Current Visit: Yes Status: Acute Assessment and plan: Patient has a history of diabetes blood sugars have been high and 200s -continue high dose sliding scale basal insulin increased to 20 units BID Qualifiers: Diabetes mellitus type: type 2 Diabetes mellitus complication status: with kidney complications Diabetes mellitus complication detail: with microalbuminuria Diabetes mellitus long term care administrator insulin use: with long term care administrator use Qualified Code(s): E11.29 - Type 2 diabetes mellitus with other diabetic kidney complication; R80.9 - Proteinuria, unspecified; R80.9 - Proteinuria, unspecified; Z79.4 - watermelon inspector (current) use of insulin; Z79.4 - watermelon inspector ( current) use of insulin; Z79.4 - watermelon inspector (current) use of insulin; Z79.4 - long-term (current) use of insulin (5) Seizure disorder Current Visit: Yes Status: Acute Assessment and plan: Patient has a history of seizures no seizure at this time continue phenytoin (6) Hypertension Current Visit: Yes Status: Acute Assessment and plan: Patient has a history of hypertension -continue home medications of losartan continue metoprolol BID -hydralazine and PRN Qualifiers: Hypertension type: unspecified Qualified Code(s): I10 - Essential (primary ) hypertension (7) UTI (urinary tract infection) Current Visit: Yes Status: Acute Assessment and plan: Urinalysis indicate presence of UTI patient is asymptomatic -Patient received one dose of ceftriaxone, antibiotics for ischemic colitis will cover UTI Qualifiers: Urinary tract infection type: site unspecified Hematuria presence: without hematuria Qualified Code(s): N39.0 - Urinary tract infection, site not specified (8) DVT prophylaxis Current Visit: Yes Status: Acute Assessment and plan: pharmacy dosing warfarin. - Subjective Interval history: 71M evaluated at bedside. he denies nausea, vomiting, diarrhea, fever, chills, chest pain, shortness of breath. he denies any new complaints today. He was laying in bed watching TV. - Constitutional Vitals: Temp Pulse Resp BP Pulse Ox 97.7 F 76 16 131/76 93 01/08/17 08:07 01/08/17 08:07 01/08/17 08:07 01/08/17 08:07 01/08/17 08:07 General appearance: Present: A&O X 3, pleasant, no acute distress. Absent: answers questions appropriately - Head Head exam: Present: atraumatic, normocephalic - Neck Neck exam general surgery: Present: supple, trachea midline - Respiratory Respiratory exam: Present: CTAB - Cardiovascular Cardiovascular exam: Present: irregular rhythm - GI/Abdominal GI/Abdominal exam: Present: distended, normal bowel sounds, soft. Absent: tenderness - Extremities Exam Additional comments: bilateral lower extremity darkening in ankle and key area. - Neurological Exam Neurological exam: Present: alert, oriented X3, no focal deficits - Psychiatric Psychiatric exam: Present: normal affect, normal mood Internal Medicine: Result - Labs CBC & Chem 7: 01/07/17 02:43 01/07/17 02:43 - ABG Interpretation ABG results: PT/INR, D-dimer PT 17.9 Seconds (9.4-12.1) H 01/08/17 07:29 - VTE Documentation of Mechanical Device: Intermittent pneumatic compression device Consult Discharge Plan - Plan Referrals: Anuradha Diaz, FEATHER WASHER [Primary Care Provider] - <Jyoti Kitchen - Last Filed: 01/08/17 14:43> Date of Encounter: 01/08/17 - Constitutional Vitals: Temp Pulse Resp BP Pulse Ox 97.8 F 77 16 126/76 96 01/08/17 12:07 01/08/17 12:07 01/08/17 12:07 01/08/17 12:07 01/08/17 12:07 Internal Medicine: Result - Labs CBC & Chem 7: 01/07/17 02:43 01/07/17 02:43 - ABG Interpretation ABG results: PT/INR, D-dimer PT 17.9 Seconds (9.4-12.1) H 01/08/17 07:29 - Attending Attestation I have seen and examined patient independently. I have discussed with resident DR Leal regarding the management plan. Agree with the documentation. Patient denies abdominal pain, rectal bleeding, nausea or vomiting. Vitals are stable. Has loose stool, will check GI panel. Continue Cipro and Flagyl to finish a seven-day course. Tolerate solid diet well. Adjust the insulin dose to get better glucose control.
[2017-01-08] MEDS ORDERED: Magnesium Sulfate 2 GM in D5% in Water 100 ML IVPB ONE (10:14)
[2017-01-08] MEDS ORDERED: *HR* Warfarin 4 MG TABLET PO ONE (18:00)
[2017-01-09 04:30] LABS: Prothrombin Time 21.4 Seconds (9.4-12.1)
[2017-01-09 04:41] LABS: Magnesium 1.6 mg/dL (1.6-2.6); Phosphorous 2.9 mg/dL (2.3-4.7)
[2017-01-09 04:46] LABS: Ionized Calcium 1.19 mmol/L (1.15-1.35)
[2017-01-09] MEDS ORDERED: Magnesium Sulfate 2 GM in D5% in Water 100 ML IVPB ONE (08:27)
[2017-01-09] MEDS ORDERED: Insulin DETEMIR 100 UNIT/ML X5UNITS SQ SCH (09:00)
[2017-01-09] MEDS: metroNIDAZOLE 500 MG TABLET PO SCH ×2 (09:14→13:58)
[2017-01-09] MEDS: Gabapentin 300 MG CAPSULE PO SCH ×2 (09:14→13:58)
[2017-01-09] MEDS: Loratadine 10 MG TABLET PO SCH (09:15)
[2017-01-09] MEDS: Lactobacillus 1 EACH CAP.SPRINK PO SCH (09:15)
[2017-01-09] MEDS: Insulin LISPRO 300 UNITS/3 ML VIAL SQ SCH ×2 (09:16→12:17)
--- NOTE | 2017-01-09 11:49 | Gastroenterology Progress Note ---
<Angelique Valverde - Last Filed: 01/09/17 11:47> Date of Encounter: 01/09/17 Time of Encounter: 10:00 - Assessment and plan (1) Rectal bleeding Status: Acute Assessment and plan: Resolved, likely due to ischemic colitis, will do outpatient colonoscopy in 6-8 weeks. (2) Ischemic colitis Status: Acute Assessment and plan: outpatient colonoscopy in 6-8 weeks. - Time Spent With Patient Total time spent is greater than 50% in coordination of care (as documented) at patient's floor/unit and/or counseling patient: - Subjective Interval history: Pt is awake and sitting up in bed. He denies any abdominal pain, nausea, vomiting, or bloody stool. - Constitutional Vitals: Temp Pulse Resp BP Pulse Ox 97.5 F L 84 18 132/73 96 01/09/17 10:24 01/09/17 10:24 01/09/17 10:24 01/09/17 10:24 01/09/17 10:24 Exam: CONSTITUTIONAL:~alert, no acute distress.~HEAD:~normocephalic.~EYES:~no jaundice.~NECK:~no obvious swelling.~HEART:~regular rate and rhythm, no murmurs. ~LUNGS:~bilateral good air entry.~ABDOMEN:~non distended, soft, non tender, no masses pulpable, no organomegaly.~RECTAL EXAM:~Deferred.~EXTREMITIES:~no clubbing, cyanosis or edema.~SKIN:~no stigmata of chronic liver disease.~ NEUROLOGIC:~no obvious focal defect.~~~~ Results - Labs CBC & Chem 7: 01/07/17 02:43 01/07/17 02:43 Labs: Last Result Calcium 9.5 mg/dL (8.6-10.8) 01/07/17 02:43 Entire Visit Hgb 11.7 g/dL (12.9-16.9) L 01/07/17 02:43 Hct 35.1 % (37.5-50.1) L 01/07/17 02:43 PT 21.4 Seconds (9.4-12.1) H 01/09/17 02:52 Total Bilirubin 0.5 mg/dL (0.2-1.2) 01/05/17 08:57 AST 19 Units/L (5-34) 01/05/17 08:57 ALT 25 Units/L (0-55) 01/05/17 08:57 - ABG ABG results: PT/INR, D-dimer PT 21.4 Seconds (9.4-12.1) H 01/09/17 02:52 - VTE Documentation of Mechanical Device: Intermittent pneumatic compression device Consult Discharge Plan - Plan Additional Instructions: Finish antibiotics to completion follow-up with gastroenterology and 4-6 weeks for colonoscopy outpatient follow up with PCP in about a week or 2 return to the hospital should you develop fever, chills, worsening abdominal pain, nausea, vomiting Referrals: Jonathan Amaro MD [Partnered Physician] - Anuradha Diaz CNP [Primary Care Provider] - Prescriptions: Ciprofloxacin [Cipro] 500 mg PO BID #5 tablet metroNIDAZOLE [Flagyl] 500 mg PO TID #7 tablet <Meryl Tesfaye - Last Filed: 01/09/17 21:58> Date of Encounter: 01/09/17 Time of Encounter: 14:45 - Time Spent With Patient Total time spent is greater than 50% in coordination of care (as documented) at patient's floor/unit and/or counseling patient: - Constitutional Vitals: Temp Pulse Resp BP Pulse Ox 97.9 F 76 16 123/77 97 01/09/17 14:56 01/09/17 14:56 01/09/17 14:56 01/09/17 14:56 01/09/17 14:56 Results - Labs CBC & Chem 7: 01/07/17 02:43 01/07/17 02:43 Labs: Last Result Calcium 9.5 mg/dL (8.6-10.8) 01/07/17 02:43 Entire Visit Hgb 11.7 g/dL (12.9-16.9) L 01/07/17 02:43 Hct 35.1 % (37.5-50.1) L 01/07/17 02:43 PT 21.4 Seconds (9.4-12.1) H 01/09/17 02:52 Total Bilirubin 0.5 mg/dL (0.2-1.2) 01/05/17 08:57 AST 19 Units/L (5-34) 01/05/17 08:57 ALT 25 Units/L (0-55) 01/05/17 08:57 - ABG ABG results: PT/INR, D-dimer PT 21.4 Seconds (9.4-12.1) H 01/09/17 02:52 - Attending Attestation I examined this patient and my medical decision-making was reviewed with the Resident Physician. I agree with the documented findings, disposition and treatment plan as described except to the extent set forth below.
[2017-01-09] MEDS ORDERED: FLUARIX QUAD 2017-18 36MOS UP/PF 0.5 ML SYRINGE IM ONE (13:45)
--- NOTE | 2017-01-09 14:16 | Physician Discharge Referral ---
ExtendedCare Referral Info Transfer To: SNF rehab facility Provider in Charge after Transfer: PCP Institutional Level of Care: Intermediate - Diagnosis (1) Rectal bleeding Priority: Primary Status: Acute (2) Abdominal pain Status: Resolved (3) Diabetes Priority: Secondary Status: Acute (4) Seizure disorder Priority: Secondary Status: Acute (5) Hypertension Priority: Secondary Status: Acute (6) UTI (urinary tract infection) Priority: Secondary Status: Acute (7) DVT prophylaxis Priority: Secondary Status: Acute - Transfer Medications Prescriptions: Ciprofloxacin [Cipro] 500 mg PO BID #5 tablet metroNIDAZOLE [Flagyl] 500 mg PO TID #7 tablet Home Medications: Albuterol Sulfate [Proair Respiclick] 90 mcg IH Q4H PRN 05/08/15 [History] Cholecalciferol (Vitamin D3) [Vitamin D3] 1,000 unit PO DAILY 05/08/15 [History] Exenatide Microspheres [Bydureon Pen] 2 mg SQ QWEEK 05/08/15 [History] Fenofibric Acid (Choline) [Trilipix] 135 mg PO DAILY 05/08/15 [History] Fexofenadine HCl 180 mg PO DAILY 05/08/15 [History] Fluticasone Propionate Nasal [Flonase] 1 aerosol NS DAILY 05/08/15 [History] Furosemide [Lasix] 20 mg PO TID 05/08/15 [History] Gabapentin [Neurontin] 600 mg PO TID 05/08/15 [History] Glimepiride [Amaryl] 4 mg PO DAILY 05/08/15 [History] Loratadine [Claritin] 10 mg PO DAILY 05/08/15 [History] Losartan Potassium [Cozaar] 100 mg PO DAILY 05/08/15 [History] Metformin HCl [Fortamet] 1,000 mg PO BID 05/08/15 [History] Montelukast Sodium [Singulair] 10 mg PO DAILY 05/08/15 [History] Pantoprazole Sodium [Protonix] 40 mg PO DAILY 05/08/15 [History] Phenytoin Sodium Extended [Phenytek] 100 mg PO TID 05/08/15 [History] Potassium Chloride [K-Tab ER] 20 meq PO BID 05/08/15 [History] Pravastatin Sodium [Pravachol] 40 mg PO DAILY 05/08/15 [History] Ranitidine HCl [Zantac] 150 mg PO BID 05/08/15 [History] Warfarin [Coumadin] 4 mg PO SUTUTHFRSA 05/08/15 [History] hydrOXYzine pamoate [HydrOXYzine Pamoate] 25 mg PO TID 05/08/15 [History] Insulin Glargine,Hum.rec.anlog [Toujeo Solostar] 15 units SQ DAILY 01/04/17 [ History] Rosuvastatin [Crestor] 40 mg PO HS 01/04/17 [History] Warfarin [Coumadin] 6 mg PO MOWE 01/04/17 [History] Ciprofloxacin [Cipro] 500 mg PO BID #5 tablet 01/09/17 [Rx] metroNIDAZOLE [Flagyl] 500 mg PO TID #7 tablet 01/09/17 [Rx] Allergies/Adverse Reactions: 3 Allergy/AdvReac Type Severity Reaction Status Date / Time No Known Allergies Allergy Verified 05/08/15 10:26 - Respiratory Orders None Smoking Cessation: Smoking cessation has been advised. For more information, call the [place] Tobacco Quit Line at 5-060-ZUBR-NOW. - Advance Directives Code Status: Full Code - Mobility Orders Ambulate - Rehabiliation Orders Rehab Potential: Good Rehab Orders: Evaluation for Physical Therapy, Evaluation for Occupational Therapy - Diet Orders Regular CERTIFICATION: I certify that the transfer of the above named patient to an Extended Care Facility is necessary for the continuing treatment of the diagnosis listed. The above information is true and accurate reflection of patient's current condition. Confidential - Redisclosure prohibited without a patient's written consent.
[2017-01-09 14:57] VITALS: BP 123/77
--- NOTE | 2017-01-09 15:46 | Event Note ---
Date of Encounter: 01/09/17 Time of Encounter: 10:00 I saw and examined the patient independently. I have discussed with resident Dr Lazo regarding the discharge plan. Agree with the documentation. Patient denies abdominal pain or diarrhea. No rectal bleeding. On exam, abdominal is soft nontender. Vital signs stable. Patient will discharge to [facility] today. Discharge summary updated, details please refer to discharge summary.
[2017-01-09] MEDS ORDERED: *HR* Warfarin 4 MG TABLET PO ONE (18:00)
[2017-01-09] MEDS ORDERED: *HR* Warfarin 3 MG TABLET PO ONE (18:00)
--- NOTE | 2017-01-09 18:02 | Electrocardiograph Report ---
[place] [id number] Test Date: 2017-01-08 Pat Name: Mesfin Douglass Department: 115 Room: 3A15 Gender: M Last Inserter: : 1945 Requested By: Lili Leal Order Number: [id number] Reading MD: Bhavik Matthews MD Measurements Intervals Gary Rate: 89 P: ID: 0 QRS: 50 QRSD: 105 T: 26 QT: 364 QTc: 410 Interpretive Statements sinus rhythm with frequent pacs loss v1 capture Electronically Signed On 01-09-2017 18:01:13 EDT by Bhavik Matthews MD
== END 2017-01-09 16:17 ==
LOC: EMEROO 09:38 → 3ANU 09:38
PROVIDERS: ADMIT Nurse Practitioner Family; ATTEND Internal Medicine

== ENCOUNTER 2021-10-18 09:15 | Inpatient (IN) ==
[2021-10-18] MEDS ORDERED: Iopamidol - 370 500 ML MLS IVP ONE (11:10)
[2021-10-18] MEDS ORDERED: *HR* Dextrose 50 % in Water (Syg) 50 ML SYRINGE ONE ×2 (11:16→15:16)
[2021-10-18] MEDS ORDERED: *HR* Dextrose 50 % in Water (Vial) 50 ML VIAL IVP ONE (11:16)
[2021-10-18 11:27] LABS: Basophils % 0.2 %; Hematocrit 35.6 % (37.5-50.1); Hemoglobin 12.1 g/dL (12.9-16.9); Immature Granulocytes % 0.3 % (0-4); Lymphocytes # 0.4 K/mcL (0.6-4.6); Lymphocytes % 5.6 %; Mean Corpuscular Volume 88.3 fL (83.0-100.0); Mean Platelet Volume 11.1 fL (9.4-12.4); Monocytes # 0.9 K/mcL (0.0-1.3); Monocytes % 12.9 %; Neutrophils # 5.3 K/mcL (1.6-8.9); Platelet Count 198 K/mcL (140-400); Red Blood Count 4.03 M/mcL (4.19-5.50); Red Cell Distribution Width 12.9 % (11.5-14.5); White Blood Count 6.6 K/mcL (4.3-11.1)
[2021-10-18 11:52] LABS: Alanine Aminotransferase 19 Units/L (7-52); Albumin 3.4 g/dL (3.5-5.7); Albumin/Globulin Ratio 1.1 (1.1-2.2); Alkaline Phosphatase 81 Units/L (34-104); Aspartate Amino Transferase 26 Units/L (13-39); BUN/Creatinine Ratio 11 (6-26); Bilirubin,Total 0.2 mg/dL (0.3-1.0); Blood Urea Nitrogen 8 mg/dL (8-23); Calcium 8.9 mg/dL (8.6-10.3); Carbon Dioxide 29 mEq/L (23-29); Chloride 102 mEq/L (98-107); Globulin 3.2 g/dL (2.4-3.5); Glucose 34 mg/dL (70-105); Osmolality,Calculated 283 (280-300); Potassium 3.5 mEq/L (3.5-5.1); Sodium 139 mEq/L (136-145); Total Protein 6.6 g/dL (6.4-8.9); eGFR For African Americans > 60 (> 60); eGFR For Non-African Americans > 60 (> 60)
[2021-10-18 12:31] LABS: Bilirubin,Urine Negative (Negative); Blood,Urine Small (Negative); Clarity,Urine Clear (Clear); Color,Urine Light-Yellow (Yellow); Glucose,Urine (UA) 50 mg/dL (Normal); Hyaline Casts,Urine Few per lpf (None Seen); Ketones,Urine Trace mg/dL (Negative); Leukocyte Esterase,Urine Negative (Negative); Mucus,Urine Few per lpf (None-Few); Nitrite,Urine Negative (Negative); PH,Urine 6.5 pH Units (5.0-8.0); Protein,Urine >=300 mg/dL (Neg-Trace); Specific Gravity,Urine 1.027 (1.010-1.025); Squamous Epithelial Cell,Urine Few per hpf (None-Few); Urobilinogen,Urine Normal (Normal); WBC,Urine 0-3 per hpf (0-3)
[2021-10-18] MEDS ORDERED: Naloxone 0.4 MG/ML INJ IVP PRN (13:44)
[2021-10-18] MEDS ORDERED: Acetaminophen 325 MG TABLET PO PRN (13:44)
[2021-10-18] MEDS ORDERED: Ondansetron ODT 4 MG TAB.RAPDIS SL PRN (13:44)
[2021-10-18] MEDS ORDERED: Perflutren Lipid Microsphere 1.3 ML in 0.9 % Sodium Chloride 8.7 ML IVP PRN (13:49)
[2021-10-18] MEDS ORDERED: *HR* Labetalol 20 MG/4 ML SYRINGE IVP PRN (13:51)
[2021-10-18] MEDS ORDERED: D5% in 0.9% NACL 1,000 ML IVC SCH (14:00)
[2021-10-18] MEDS: levoFLOXacin 750 MG/150 ML 750 MG/150 ML BAG IVPB SCH (15:13)
[2021-10-18 18:01] LABS: INR 2.9; Prothrombin Time 31.7 Seconds (9.4-12.1)
[2021-10-18] MEDS: Gabapentin 300 MG CAPSULE PO SCH (20:51)
[2021-10-19 06:33] LABS: BUN/Creatinine Ratio 10 (6-26); Blood Urea Nitrogen 10 mg/dL (8-23); Calcium 8.5 mg/dL (8.6-10.3); Carbon Dioxide 28 mEq/L (23-29); Chloride 101 mEq/L (98-107); Glucose 179 mg/dL (70-105); Magnesium 1.6 mg/dL (1.6-2.6); Osmolality,Calculated 286 (280-300); Phosphorous 2.5 mg/dL (2.7-4.5); Potassium 3.4 mEq/L (3.5-5.1); Sodium 136 mEq/L (136-145); eGFR For African Americans > 60 (> 60); eGFR For Non-African Americans > 60 (> 60)
[2021-10-19 06:35] LABS: Alanine Aminotransferase 15 Units/L (7-52); Albumin/Globulin Ratio 1.2 (1.1-2.2); Alkaline Phosphatase 70 Units/L (34-104); Aspartate Amino Transferase 20 Units/L (13-39); BUN/Creatinine Ratio 10 (6-26); Bilirubin,Total 0.2 mg/dL (0.3-1.0); Blood Urea Nitrogen 10 mg/dL (8-23); Calcium 8.5 mg/dL (8.6-10.3); Carbon Dioxide 27 mEq/L (23-29); Chloride 102 mEq/L (98-107); Chol/HDL Ratio 2.2 (0-4.9); Cholesterol 100 mg/dL (< 200); Globulin 2.6 g/dL (2.4-3.5); Glucose 180 mg/dL (70-105); HDL Cholesterol 46 mg/dL (40-59); LDL Cholesterol,Calculated 30 mg/dL (< 100); Osmolality,Calculated 286 (280-300); Potassium 3.4 mEq/L (3.5-5.1); Sodium 136 mEq/L (136-145); Total Protein 5.6 g/dL (6.4-8.9); Triglycerides 120 mg/dL (< 150); eGFR For African Americans > 60 (> 60); eGFR For Non-African Americans > 60 (> 60)
[2021-10-19] MEDS: Furosemide 20 MG TABLET PO SCH ×3 (08:31→19:39)
[2021-10-19] MEDS: Loratadine 10 MG TABLET PO SCH (08:31)
[2021-10-19] MEDS: Cholecalciferol (D-3) 1,000 UNIT (25MCG) TABLET PO SCH (08:32)
[2021-10-19] MEDS: Aspirin Enteric Coated 81 MG Tablet PO SCH (08:32)
[2021-10-19] MEDS: Gabapentin 300 MG CAPSULE PO SCH ×3 (08:32→19:36)
[2021-10-19] MEDS: Fenofibrate 54 MG TABLET PO SCH (08:34)
[2021-10-19] MEDS: levoFLOXacin 750 MG/150 ML 750 MG/150 ML BAG IVPB SCH (08:37)
[2021-10-19] MEDS ORDERED: amLODIPine 5 MG TABLET PO SCH (09:00)
[2021-10-19] MEDS: Fluticasone Propionate Nasal 50 MCG/SPRAY BOTTLE NS SCH (09:14)
[2021-10-19 09:58] LABS: Estimated Average Glucose 160 mg/dl; Hemoglobin A1C 7.2 %
[2021-10-19] MEDS ORDERED: *HR* Dextrose 50 % in Water (Syg) 50 ML SYRINGE IVP PRN (10:55)
[2021-10-19] MEDS ORDERED: D5% in Water 1,000 ML IVC PRN (10:55)
[2021-10-19] MEDS ORDERED: Dextrose Gel 15 GM/37.5 ML TUBE PO PRN ×2 (10:55)
[2021-10-19] MEDS: Insulin LISPRO 300 UNITS/3 ML VIAL SUBQ SCH ×4 (13:00→19:38)
[2021-10-19 13:21] LABS: INR 2.9; Prothrombin Time 32.4 Seconds (9.4-12.1)
[2021-10-19] MEDS ORDERED: Warfarin perPT PO PRN (18:00)
[2021-10-19] MEDS ORDERED: *HR* Warfarin 2 MG TABLET PO ONE (18:00)
[2021-10-20 03:50] LABS: INR 2.8; Prothrombin Time 30.6 Seconds (9.4-12.1)
[2021-10-20] MEDS: Insulin LISPRO 300 UNITS/3 ML VIAL SUBQ SCH ×4 (07:30→20:26)
[2021-10-20] MEDS: levoFLOXacin 750 MG/150 ML 750 MG/150 ML BAG IVPB SCH (07:59)
[2021-10-20] MEDS: Aspirin Enteric Coated 81 MG Tablet PO SCH (08:00)
[2021-10-20] MEDS: Cholecalciferol (D-3) 1,000 UNIT (25MCG) TABLET PO SCH (08:00)
[2021-10-20] MEDS: amLODIPine 5 MG TABLET PO SCH ×2 (08:00→08:02)
[2021-10-20] MEDS: Fenofibrate 54 MG TABLET PO SCH (08:00)
[2021-10-20] MEDS: Gabapentin 300 MG CAPSULE PO SCH ×3 (08:00→20:40)
[2021-10-20] MEDS: Loratadine 10 MG TABLET PO SCH (08:00)
[2021-10-20] MEDS: Furosemide 20 MG TABLET PO SCH ×3 (08:00→20:40)
[2021-10-20] MEDS: Fluticasone Propionate Nasal 50 MCG/SPRAY BOTTLE NS SCH (08:01)
[2021-10-20] MEDS: *HR* HYDROcodone/Acet 5/325 mg TABLET PO PRN (11:33)
[2021-10-20] MEDS ORDERED: *HR* Warfarin 2 MG TABLET PO ONE (18:00)
[2021-10-21 04:59] LABS: INR 2.7; Prothrombin Time 29.8 Seconds (9.4-12.1)
[2021-10-21] MEDS: Loratadine 10 MG TABLET PO SCH (08:38)
[2021-10-21] MEDS: Furosemide 20 MG TABLET PO SCH ×3 (08:38→20:06)
[2021-10-21] MEDS: Aspirin Enteric Coated 81 MG Tablet PO SCH (08:38)
[2021-10-21] MEDS: Gabapentin 300 MG CAPSULE PO SCH ×3 (08:38→20:06)
[2021-10-21] MEDS: amLODIPine 5 MG TABLET PO SCH (08:38)
[2021-10-21] MEDS: Cholecalciferol (D-3) 1,000 UNIT (25MCG) TABLET PO SCH (08:38)
[2021-10-21] MEDS: Fenofibrate 54 MG TABLET PO SCH (08:39)
[2021-10-21] MEDS: levoFLOXacin 750 MG/150 ML 750 MG/150 ML BAG IVPB SCH (08:42)
[2021-10-21] MEDS: Fluticasone Propionate Nasal 50 MCG/SPRAY BOTTLE NS SCH (08:43)
[2021-10-21] MEDS: Insulin LISPRO 300 UNITS/3 ML VIAL SUBQ SCH ×4 (08:44→20:06)
[2021-10-21 13:47] LABS: BUN/Creatinine Ratio 16 (6-26); Blood Urea Nitrogen 16 mg/dL (8-23); Calcium 8.7 mg/dL (8.6-10.3); Carbon Dioxide 30 mEq/L (23-29); Chloride 102 mEq/L (98-107); Glucose 139 mg/dL (70-105); Osmolality,Calculated 291 (280-300); Potassium 3.6 mEq/L (3.5-5.1); Sodium 139 mEq/L (136-145); eGFR For African Americans > 60 (> 60); eGFR For Non-African Americans > 60 (> 60)
[2021-10-21] MEDS: *HR* HYDROcodone/Acet 5/325 mg TABLET PO PRN (15:23)
[2021-10-21] MEDS ORDERED: *HR* Warfarin 2 MG TABLET PO ONE (18:00)
[2021-10-22 03:05] LABS: INR 2.6; Prothrombin Time 28.5 Seconds (9.4-12.1)
[2021-10-22] MEDS: Gabapentin 300 MG CAPSULE PO SCH ×3 (08:40→20:35)
[2021-10-22] MEDS: amLODIPine 5 MG TABLET PO SCH (08:40)
[2021-10-22] MEDS: Furosemide 20 MG TABLET PO SCH ×3 (08:40→20:36)
[2021-10-22] MEDS: Cholecalciferol (D-3) 1,000 UNIT (25MCG) TABLET PO SCH (08:40)
[2021-10-22] MEDS: Fenofibrate 54 MG TABLET PO SCH (08:41)
[2021-10-22] MEDS: Loratadine 10 MG TABLET PO SCH (08:42)
[2021-10-22] MEDS: Aspirin Enteric Coated 81 MG Tablet PO SCH (08:42)
[2021-10-22] MEDS: Insulin LISPRO 300 UNITS/3 ML VIAL SUBQ SCH ×4 (08:45→20:41)
[2021-10-22] MEDS: Fluticasone Propionate Nasal 50 MCG/SPRAY BOTTLE NS SCH (08:45)
[2021-10-22] MEDS ORDERED: levoFLOXacin 750 MG TABLET PO SCH (09:00)
[2021-10-22 10:05] LABS: Influenza A PCR Negative (Negative); Influenza B PCR Negative (Negative); Resp. Syncytial Virus PCR Negative (Negative)
[2021-10-22 10:10] LABS: SARS-CoV-2 by PCR (In House) Positive (Negative)
[2021-10-22 11:42] VITALS: BP 148/73; PULSE 82; TEMP 98.1; O2SAT 94
[2021-10-22] MEDS ORDERED: *HR* Warfarin 2 MG TABLET PO ONE (18:00)
== END 2021-10-22 20:53 | DRG 64 ==
LOC: 3BNU 09:15 → EMEROOARM 09:15 → SUATTDRO 15:19 → 3BNU 17:05
PROVIDERS: ADMIT Internal Medicine; ATTEND Internal Medicine

== ENCOUNTER 2021-11-13 09:43 | Inpatient (IN) ==
[2021-11-13] MEDS ORDERED: 0.9 % Sodium Chloride 500 ML IVC ONE (09:53)
[2021-11-13] MEDS ORDERED: Ondansetron 4 MG/2 ML VIAL IVP ONE (09:53)
[2021-11-13] MEDS ORDERED: *HR* FentaNYL (PF) 100 MCG/2 ML VIAL IVP ONE (09:55)
[2021-11-13 10:35] LABS: Basophils % 0.3 %; Eosinophils % 0.2 %; Hematocrit 29.2 % (37.5-50.1); Hemoglobin 9.7 g/dL (12.9-16.9); Immature Granulocytes % 0.6 % (0-4); Lymphocytes # 0.6 K/mcL (0.6-4.6); Lymphocytes % 4.2 %; Mean Corpuscular HGB Conc 33.2 g/dL (31.6-35.5); Mean Corpuscular Hemoglobin 30.5 pg (28.0-33.3); Mean Corpuscular Volume 91.8 fL (83.0-100.0); Mean Platelet Volume 10.7 fL (9.4-12.4); Monocytes # 1.1 K/mcL (0.0-1.3); Monocytes % 7.9 %; Neutrophils # 11.6 K/mcL (1.6-8.9); Platelet Count 298 K/mcL (140-400); Red Blood Count 3.18 M/mcL (4.19-5.50); Red Cell Distribution Width 13.5 % (11.5-14.5); Segmented Neutrophils % 86.8 %; White Blood Count 13.3 K/mcL (4.3-11.1)
[2021-11-13 10:50] LABS: INR 6.8; Prothrombin Time 74.4 Seconds (9.4-12.1)
[2021-11-13 10:56] LABS: Alanine Aminotransferase 18 Units/L (7-52); Albumin 2.9 g/dL (3.5-5.7); Albumin/Globulin Ratio 0.8 (1.1-2.2); Alkaline Phosphatase 106 Units/L (34-104); Aspartate Amino Transferase 24 Units/L (13-39); BUN/Creatinine Ratio 35 (6-26); Bilirubin,Direct 0.1 mg/dL (0.0-0.2); Bilirubin,Indirect 0.3 mg/dL (0.0-1.0); Bilirubin,Total 0.4 mg/dL (0.3-1.0); Blood Urea Nitrogen 51 mg/dL (8-23); Calcium 8.6 mg/dL (8.6-10.3); Carbon Dioxide 23 mEq/L (23-29); Chloride 101 mEq/L (98-107); Globulin 3.6 g/dL (2.4-3.5); Glucose 276 mg/dL (70-105); Lipase 48 Units/L (11-82); Osmolality,Calculated 302 (280-300); Potassium 5.7 mEq/L (3.5-5.1); Sodium 134 mEq/L (136-145); Total Protein 6.5 g/dL (6.4-8.9); Troponin I < 0.03 ng/mL (< 0.04)
[2021-11-13] MEDS ORDERED: Albuterol 2.5 MG/3 ML NEBULIZER IH ONE (11:03)
[2021-11-13] MEDS ORDERED: *HR* Dextrose 50 % in Water (Syg) 50 ML SYRINGE IVP STA (11:03)
[2021-11-13] MEDS ORDERED: Insulin Human Regular 10 UNIT in 0.9 % Sodium Chloride 10 ML IV ONE (11:03)
[2021-11-13] MEDS ORDERED: Metoclopramide 10 MG/2 ML VIAL IVP ONE (11:05)
[2021-11-13 11:37] LABS: Bilirubin,Urine Negative (Negative); Blood,Urine Negative (Negative); Clarity,Urine Clear (Clear); Color,Urine Light-Yellow (Yellow); Glucose,Urine (UA) 50 mg/dL (Normal); Ketones,Urine Negative (Negative); Leukocyte Esterase,Urine Negative (Negative); Mucus,Urine Few per lpf (None-Few); Nitrite,Urine Negative (Negative); PH,Urine 5.5 pH Units (5.0-8.0); Protein,Urine 30 mg/dL (Neg-Trace); RBC,Urine 0-3 per hpf (0-3); Specific Gravity,Urine 1.015 (1.010-1.025); Urobilinogen,Urine Normal (Normal); WBC,Urine 0-3 per hpf (0-3)
[2021-11-13] MEDS ORDERED: Ondansetron 4 MG/2 ML VIAL IVP PRN (12:01)
[2021-11-13] MEDS ORDERED: Naloxone 0.4 MG/ML INJ IVP PRN (12:01)
[2021-11-13] MEDS ORDERED: *HR* Dextrose 50 % in Water (Syg) 50 ML SYRINGE IVP PRN (12:03)
[2021-11-13] MEDS ORDERED: Dextrose Gel 15 GM/37.5 ML TUBE PO PRN ×2 (12:03)
[2021-11-13] MEDS ORDERED: D5% in Water 1,000 ML IVC PRN (12:03)
[2021-11-13] MEDS: Insulin LISPRO 300 UNITS/3 ML VIAL SUBQ SCH (17:55)
[2021-11-13] MEDS: *HR* HYDROcodone/Acet 5/325 mg TABLET PO PRN (19:36)
[2021-11-13] MEDS: Insulin DETEMIR 100 UNIT/ML X5UNITS SUBQ SCH (21:02)
[2021-11-13] MEDS ORDERED: 0.9 % Sodium Chloride 1,000 ML IVC ONE (22:04)
[2021-11-14 06:12] LABS: Calcium 8.4 mg/dL (8.6-10.3); Magnesium 1.5 mg/dL (1.6-2.6); Phosphorous 2.8 mg/dL (2.7-4.5); Potassium 3.9 mEq/L (3.5-5.1)
[2021-11-14 06:38] LABS: INR 8.4; Prothrombin Time 92.3 Seconds (9.4-12.1)
[2021-11-14] MEDS: Aspirin Enteric Coated 81 MG Tablet PO SCH (09:22)
[2021-11-14] MEDS: Insulin DETEMIR 100 UNIT/ML X5UNITS SUBQ SCH ×2 (09:22→21:57)
[2021-11-14] MEDS: Insulin LISPRO 300 UNITS/3 ML VIAL SUBQ SCH ×3 (09:22→18:25)
[2021-11-14] MEDS: Loratadine 10 MG TABLET PO SCH (09:22)
[2021-11-14 10:50] LABS: INR 8.7; Prothrombin Time 94.9 Seconds (9.4-12.1)
[2021-11-14] MEDS: Piperacillin/Tazobactam 3.375 GM in 0.9 % Sodium Chloride Mini Bag 100 ML IVPB SCH ×2 (16:23→23:35)
[2021-11-14] MEDS: Magnesium Oxide 400 MG TABLET PO SCH (21:57)
[2021-11-15] MEDS: *HR* HYDROcodone/Acet 5/325 mg TABLET PO PRN (00:21)
[2021-11-15] MEDS ORDERED: *HR* HYDROmorphone (PF) 1 MG/ML SYRINGE IVP ONE (01:54)
[2021-11-15 03:12] LABS: Basophils % 0.4 %; Eosinophils # 0.1 K/mcL (0.0-0.6); Eosinophils % 1.2 %; Hematocrit 24.6 % (37.5-50.1); Immature Granulocytes % 0.4 % (0-4); Lymphocytes # 0.8 K/mcL (0.6-4.6); Mean Corpuscular HGB Conc 32.1 g/dL (31.6-35.5); Mean Corpuscular Hemoglobin 29.6 pg (28.0-33.3); Mean Corpuscular Volume 92.1 fL (83.0-100.0); Mean Platelet Volume 10.5 fL (9.4-12.4); Monocytes # 1.1 K/mcL (0.0-1.3); Monocytes % 10.6 %; Neutrophils # 8.2 K/mcL (1.6-8.9); Platelet Count 194 K/mcL (140-400); Red Blood Count 2.67 M/mcL (4.19-5.50); Red Cell Distribution Width 13.6 % (11.5-14.5); Segmented Neutrophils % 79.4 %; White Blood Count 10.3 K/mcL (4.3-11.1)
[2021-11-15 03:31] LABS: Hemoglobin 7.9 g/dL (12.9-16.9)
[2021-11-15 03:34] LABS: Calcium 8.5 mg/dL (8.6-10.3); Magnesium 1.4 mg/dL (1.6-2.6); Potassium 3.8 mEq/L (3.5-5.1)
[2021-11-15] MEDS: amLODIPine 5 MG TABLET PO SCH (08:28)
[2021-11-15] MEDS: Fenofibrate 54 MG TABLET PO SCH (08:28)
[2021-11-15] MEDS: Furosemide 20 MG TABLET PO SCH ×2 (08:28→16:22)
[2021-11-15] MEDS: Aspirin Enteric Coated 81 MG Tablet PO SCH (08:28)
[2021-11-15] MEDS: Magnesium Oxide 400 MG TABLET PO SCH ×2 (08:29→22:08)
[2021-11-15] MEDS: Loratadine 10 MG TABLET PO SCH (08:30)
[2021-11-15] MEDS: Insulin LISPRO 300 UNITS/3 ML VIAL SUBQ SCH ×3 (08:47→16:37)
[2021-11-15 08:51] LABS: INR 4.5; Prothrombin Time 50.1 Seconds (9.4-12.1)
[2021-11-15] MEDS: Insulin DETEMIR 100 UNIT/ML X5UNITS SUBQ SCH ×2 (08:56→22:11)
[2021-11-15] MEDS: Piperacillin/Tazobactam 3.375 GM in 0.9 % Sodium Chloride Mini Bag 100 ML IVPB SCH ×3 (10:21→23:43)
[2021-11-15] MEDS: Fluticasone Propionate Nasal 50 MCG/SPRAY BOTTLE NS SCH (10:21)
[2021-11-15] MEDS: Lactulose Oral Soln 20 GM/30 ML UDC PO SCH ×2 (10:24→22:08)
[2021-11-16 06:01] LABS: Basophils % 0.3 %; Eosinophils # 0.3 K/mcL (0.0-0.6); Eosinophils % 2.7 %; Hematocrit 25.3 % (37.5-50.1); Immature Granulocytes % 0.3 % (0-4); Lymphocytes # 0.8 K/mcL (0.6-4.6); Lymphocytes % 9.1 %; Mean Corpuscular HGB Conc 31.6 g/dL (31.6-35.5); Mean Corpuscular Hemoglobin 29.4 pg (28.0-33.3); Mean Platelet Volume 10.6 fL (9.4-12.4); Monocytes # 1.1 K/mcL (0.0-1.3); Neutrophils # 6.9 K/mcL (1.6-8.9); Platelet Count 193 K/mcL (140-400); Red Blood Count 2.72 M/mcL (4.19-5.50); Red Cell Distribution Width 13.5 % (11.5-14.5); Segmented Neutrophils % 75.6 %; White Blood Count 9.1 K/mcL (4.3-11.1)
[2021-11-16 06:09] LABS: INR 3.2; Prothrombin Time 35.5 Seconds (9.4-12.1)
[2021-11-16 06:27] LABS: Calcium 8.5 mg/dL (8.6-10.3); Potassium 3.7 mEq/L (3.5-5.1)
[2021-11-16] MEDS: Insulin LISPRO 300 UNITS/3 ML VIAL SUBQ SCH ×3 (08:55→17:34)
[2021-11-16] MEDS: Piperacillin/Tazobactam 3.375 GM in 0.9 % Sodium Chloride Mini Bag 100 ML IVPB SCH (09:15)
[2021-11-16] MEDS: Lactulose Oral Soln 20 GM/30 ML UDC PO SCH ×2 (09:16→21:00)
[2021-11-16] MEDS: Magnesium Oxide 400 MG TABLET PO SCH ×2 (09:17→21:00)
[2021-11-16] MEDS: Loratadine 10 MG TABLET PO SCH (09:17)
[2021-11-16] MEDS: Fenofibrate 54 MG TABLET PO SCH (09:17)
[2021-11-16] MEDS: amLODIPine 5 MG TABLET PO SCH (09:17)
[2021-11-16] MEDS: *HR* HYDROcodone/Acet 5/325 mg TABLET PO PRN ×3 (09:17→21:43)
[2021-11-16] MEDS: Aspirin Enteric Coated 81 MG Tablet PO SCH (09:18)
[2021-11-16] MEDS: Furosemide 20 MG TABLET PO SCH ×2 (09:18→15:11)
[2021-11-16] MEDS: Fluticasone Propionate Nasal 50 MCG/SPRAY BOTTLE NS SCH (09:19)
[2021-11-16] MEDS: Insulin DETEMIR 100 UNIT/ML X5UNITS SUBQ SCH ×2 (09:33→21:00)
[2021-11-16] MEDS ORDERED: Warfarin perPT PO PRN (18:00)
[2021-11-16] MEDS: Doxycycline 100 MG CAPSULE PO SCH (21:00)
[2021-11-17 02:37] LABS: Calcium 8.3 mg/dL (8.6-10.3); Potassium 3.8 mEq/L (3.5-5.1)
[2021-11-17 02:56] LABS: INR 2.5; Prothrombin Time 27.9 Seconds (9.4-12.1)
[2021-11-17 02:57] LABS: Basophils % 0.4 %; Eosinophils # 0.4 K/mcL (0.0-0.6); Eosinophils % 4.3 %; Hematocrit 25.1 % (37.5-50.1); Immature Granulocytes % 0.4 % (0-4); Lymphocytes % 12.8 %; Mean Corpuscular HGB Conc 31.9 g/dL (31.6-35.5); Mean Corpuscular Hemoglobin 29.3 pg (28.0-33.3); Mean Corpuscular Volume 91.9 fL (83.0-100.0); Mean Platelet Volume 10.8 fL (9.4-12.4); Monocytes # 1.1 K/mcL (0.0-1.3); Monocytes % 12.9 %; Neutrophils # 5.6 K/mcL (1.6-8.9); Platelet Count 185 K/mcL (140-400); Red Blood Count 2.73 M/mcL (4.19-5.50); Red Cell Distribution Width 13.2 % (11.5-14.5); Segmented Neutrophils % 69.2 %; White Blood Count 8.1 K/mcL (4.3-11.1)
[2021-11-17] MEDS: Aspirin Enteric Coated 81 MG Tablet PO SCH (08:37)
[2021-11-17] MEDS: Lactulose Oral Soln 20 GM/30 ML UDC PO SCH ×2 (08:37→20:33)
[2021-11-17] MEDS: Magnesium Oxide 400 MG TABLET PO SCH ×2 (08:37→20:34)
[2021-11-17] MEDS: Furosemide 20 MG TABLET PO SCH ×2 (08:38→17:14)
[2021-11-17] MEDS: amLODIPine 5 MG TABLET PO SCH (08:38)
[2021-11-17] MEDS: Doxycycline 100 MG CAPSULE PO SCH ×2 (08:39→20:34)
[2021-11-17] MEDS: Loratadine 10 MG TABLET PO SCH (08:39)
[2021-11-17] MEDS: Insulin LISPRO 300 UNITS/3 ML VIAL SUBQ SCH ×3 (08:41→17:16)
[2021-11-17] MEDS: Insulin DETEMIR 100 UNIT/ML X5UNITS SUBQ SCH ×2 (08:43→20:37)
[2021-11-17] MEDS: Fenofibrate 54 MG TABLET PO SCH (08:46)
[2021-11-17] MEDS: Fluticasone Propionate Nasal 50 MCG/SPRAY BOTTLE NS SCH (08:48)
[2021-11-17] MEDS ORDERED: GuaiFENesin Liq 200 MG/10 ML UDC PO PRN (08:56)
[2021-11-17] MEDS: *HR* HYDROcodone/Acet 5/325 mg TABLET PO PRN ×2 (12:14→20:37)
[2021-11-17] MEDS ORDERED: *HR* Warfarin 1 MG TABLET PO ONE (18:00)
[2021-11-18 06:54] LABS: INR 1.7; Prothrombin Time 19.4 Seconds (9.4-12.1)
[2021-11-18] MEDS: Insulin DETEMIR 100 UNIT/ML X5UNITS SUBQ SCH ×2 (08:19→22:16)
[2021-11-18] MEDS: Insulin LISPRO 300 UNITS/3 ML VIAL SUBQ SCH ×3 (08:19→17:32)
[2021-11-18] MEDS: Doxycycline 100 MG CAPSULE PO SCH ×2 (08:20→20:05)
[2021-11-18] MEDS: Fenofibrate 54 MG TABLET PO SCH (08:20)
[2021-11-18] MEDS: Furosemide 20 MG TABLET PO SCH ×2 (08:21→17:32)
[2021-11-18] MEDS: Loratadine 10 MG TABLET PO SCH (08:21)
[2021-11-18] MEDS: Magnesium Oxide 400 MG TABLET PO SCH ×2 (08:21→20:05)
[2021-11-18] MEDS: Aspirin Enteric Coated 81 MG Tablet PO SCH (08:21)
[2021-11-18] MEDS: amLODIPine 5 MG TABLET PO SCH (08:21)
[2021-11-18] MEDS: Fluticasone Propionate Nasal 50 MCG/SPRAY BOTTLE NS SCH (08:22)
[2021-11-18] MEDS: Lactulose Oral Soln 20 GM/30 ML UDC PO SCH ×2 (08:30→20:06)
[2021-11-18 08:48] LABS: Calcium 8.6 mg/dL (8.6-10.3); Potassium 3.8 mEq/L (3.5-5.1)
[2021-11-18] MEDS ORDERED: *HR* Warfarin 2 MG TABLET PO ONE (18:00)
[2021-11-18] MEDS: *HR* HYDROcodone/Acet 5/325 mg TABLET PO PRN (19:29)
[2021-11-19 06:21] LABS: Hemoglobin 8.9 g/dL (12.9-16.9); Mean Corpuscular Hemoglobin 29.8 pg (28.0-33.3); Mean Corpuscular Volume 90.3 fL (83.0-100.0); Mean Platelet Volume 10.3 fL (9.4-12.4); Platelet Count 252 K/mcL (140-400); Red Blood Count 2.99 M/mcL (4.19-5.50); White Blood Count 7.5 K/mcL (4.3-11.1)
[2021-11-19 06:42] LABS: INR 1.6; Prothrombin Time 18.3 Seconds (9.4-12.1)
[2021-11-19 06:44] LABS: Calcium 8.9 mg/dL (8.6-10.3); Magnesium 1.6 mg/dL (1.6-2.6); Potassium 4.1 mEq/L (3.5-5.1)
[2021-11-19] MEDS: Insulin DETEMIR 100 UNIT/ML X5UNITS SUBQ SCH (08:54)
[2021-11-19] MEDS: Insulin LISPRO 300 UNITS/3 ML VIAL SUBQ SCH ×3 (08:54→17:19)
[2021-11-19] MEDS: Lactulose Oral Soln 20 GM/30 ML UDC PO SCH (08:55)
[2021-11-19] MEDS: Loratadine 10 MG TABLET PO SCH (08:55)
[2021-11-19] MEDS: Furosemide 20 MG TABLET PO SCH ×2 (08:55→16:00)
[2021-11-19] MEDS: Doxycycline 100 MG CAPSULE PO SCH (08:55)
[2021-11-19] MEDS: Fenofibrate 54 MG TABLET PO SCH (08:56)
[2021-11-19] MEDS: Aspirin Enteric Coated 81 MG Tablet PO SCH (08:56)
[2021-11-19] MEDS: Fluticasone Propionate Nasal 50 MCG/SPRAY BOTTLE NS SCH (08:56)
[2021-11-19] MEDS: amLODIPine 5 MG TABLET PO SCH (08:56)
[2021-11-19] MEDS: Magnesium Oxide 400 MG TABLET PO SCH (08:56)
[2021-11-19 15:01] VITALS: BP 128/62; PULSE 96; TEMP 98.7; O2SAT 95
[2021-11-19] MEDS ORDERED: *HR* Warfarin 3 MG TABLET PO ONE (18:00)
== END 2021-11-19 17:52 | disposition home health service (06) | DRG 682 ==
LOC: 3ANU 09:43 → EMEROOARM 09:43 → 3ANU 12:55 → SUATTDRO 11-15 18:07
PROVIDERS: ADMIT Internal Medicine; ATTEND Internal Medicine

== ENCOUNTER 2021-11-30 04:03 | Inpatient (IN) ==
[2021-11-30] MEDS ORDERED: Morphine Sulfate 2 MG/ML SYRINGE IVP ONE (04:21)
[2021-11-30] MEDS ORDERED: Ondansetron 4 MG/2 ML VIAL IVP ONE (04:21)
[2021-11-30] MEDS ORDERED: Pantoprazole 80 MG in 0.9 % Sodium Chloride 50 ML IVPB ONE (04:21)
[2021-11-30] MEDS ORDERED: cefTRIAXone 1,000 MG in 0.9 % Sodium Chloride 10 ML IVP ONE (04:21)
[2021-11-30] MEDS ORDERED: Iopamidol - 370 500 ML MLS IVP ONE (04:25)
[2021-11-30 04:59] LABS: Basophils # 0.1 K/mcL (0.0-0.2); Basophils % 0.5 %; Eosinophils # 0.2 K/mcL (0.0-0.6); Eosinophils % 0.9 %; Hematocrit 24.6 % (37.5-50.1); Hemoglobin 7.9 g/dL (12.9-16.9); Immature Granulocytes % 0.8 % (0-4); Lymphocytes # 1.5 K/mcL (0.6-4.6); Lymphocytes % 8.8 %; Mean Corpuscular HGB Conc 32.1 g/dL (31.6-35.5); Mean Corpuscular Hemoglobin 29.5 pg (28.0-33.3); Mean Corpuscular Volume 91.8 fL (83.0-100.0); Mean Platelet Volume 10.4 fL (9.4-12.4); Monocytes # 1.4 K/mcL (0.0-1.3); Monocytes % 8.4 %; Platelet Count 682 K/mcL (140-400); Red Blood Count 2.68 M/mcL (4.19-5.50); Red Cell Distribution Width 13.4 % (11.5-14.5); Segmented Neutrophils % 80.6 %; White Blood Count 16.7 K/mcL (4.3-11.1)
[2021-11-30 05:04] LABS: INR 1.9; Prothrombin Time 20.7 Seconds (9.4-12.1)
[2021-11-30 05:06] LABS: Neutrophils # 13.5 K/mcL (1.6-8.9)
[2021-11-30 05:08] LABS: Activated Partial Thrombo Time 28.9 Seconds (26.0-36.0)
[2021-11-30 05:09] LABS: Albumin 2.3 g/dL (3.5-5.7); Albumin/Globulin Ratio 0.7 (1.1-2.2); Bilirubin,Direct 0.1 mg/dL (0.0-0.2); Bilirubin,Indirect 0.1 mg/dL (0.0-1.0); Bilirubin,Total 0.2 mg/dL (0.3-1.0); Calcium 8.4 mg/dL (8.6-10.3); Globulin 3.5 g/dL (2.4-3.5); Potassium 4.6 mEq/L (3.5-5.1); Total Protein 5.8 g/dL (6.4-8.9)
[2021-11-30] MEDS ORDERED: 0.9 % Sodium Chloride 1,000 ML IVC ONE (05:37)
[2021-11-30 07:45] LABS: Bilirubin,Urine Negative (Negative); Blood,Urine Small (Negative); Clarity,Urine Clear (Clear); Color,Urine Light-Yellow (Yellow); Glucose,Urine (UA) Normal (Normal); Ketones,Urine Negative (Negative); Leukocyte Esterase,Urine Moderate (Negative); Mucus,Urine Few per lpf (None-Few); Nitrite,Urine Negative (Negative); Protein,Urine 50 mg/dL (Neg-Trace); RBC,Urine 15-30 per hpf (0-3); Renal Epithelial Cells,Urine Few per hpf (None-Few); Specific Gravity,Urine > 1.030 (1.010-1.025); Squamous Epithelial Cell,Urine Few per hpf (None-Few); Urobilinogen,Urine Normal (Normal); WBC,Urine 30-50 per hpf (0-3)
[2021-11-30] MEDS ORDERED: Ondansetron 4 MG/2 ML VIAL IVP PRN (08:25)
[2021-11-30] MEDS ORDERED: *HR* Promethazine 25 MG/ML VIAL IM PRN (08:25)
[2021-11-30] MEDS ORDERED: Naloxone 0.4 MG/ML INJ IVP PRN (08:25)
[2021-11-30] MEDS ORDERED: Dextrose Gel 15 GM/37.5 ML TUBE PO PRN ×2 (09:06)
[2021-11-30] MEDS ORDERED: *HR* Dextrose 50 % in Water (Syg) 50 ML SYRINGE IVP PRN (09:06)
[2021-11-30] MEDS ORDERED: D5% in Water 1,000 ML IVC PRN (09:06)
[2021-11-30] MEDS: Ringers Solution, Lactated 1,000 ML IVC SCH (09:46)
[2021-11-30] MEDS: Piperacillin/Tazobactam 3.375 GM in 0.9 % Sodium Chloride Mini Bag 100 ML IVPB SCH ×2 (09:48→19:05)
[2021-11-30] MEDS ORDERED: MICRON FILTER SET IVPB SCH (10:00)
[2021-11-30] MEDS ORDERED: SODIUM CHLORIDE 0.9% IVPB SCH (10:00)
[2021-11-30] MEDS ORDERED: PHENYTOIN IVPB SCH (10:00)
[2021-11-30] MEDS: Phenytoin 100 MG in Equashield Syringe 1 EACH IVP SCH ×2 (10:04→19:01)
[2021-11-30] MEDS: Doxycycline 100 MG in 0.9 % Sodium Chloride Mini Bag 100 ML IVPB SCH ×2 (10:10→22:09)
[2021-11-30 10:50] LABS: Hematocrit 21.7 % (37.5-50.1); Hemoglobin 6.9 g/dL (12.9-16.9)
[2021-11-30] MEDS: Insulin LISPRO 300 UNITS/3 ML VIAL SUBQ SCH ×2 (13:00→19:31)
[2021-11-30] MEDS ORDERED: 0.9 % Sodium Chloride 250 ML IVC SCH (15:00)
[2021-11-30] MEDS: Pantoprazole 40 MG VIAL IVP SCH ×2 (19:05)
[2021-11-30 20:35] LABS: Hematocrit 24.4 % (37.5-50.1); Hemoglobin 7.8 g/dL (12.9-16.9)
[2021-12-01] MEDS: Ringers Solution, Lactated 1,000 ML IVC SCH (00:47)
[2021-12-01] MEDS: Insulin LISPRO 300 UNITS/3 ML VIAL SUBQ SCH ×4 (00:48→16:38)
[2021-12-01 02:10] LABS: Basophils # 0.1 K/mcL (0.0-0.2); Basophils % 0.6 %; Eosinophils # 0.3 K/mcL (0.0-0.6); Eosinophils % 2.3 %; Hematocrit 24.1 % (37.5-50.1); Hemoglobin 7.7 g/dL (12.9-16.9); Immature Granulocytes % 0.9 % (0-4); Lymphocytes # 1.1 K/mcL (0.6-4.6); Lymphocytes % 9.5 %; Mean Corpuscular Hemoglobin 29.2 pg (28.0-33.3); Mean Corpuscular Volume 91.3 fL (83.0-100.0); Mean Platelet Volume 10.1 fL (9.4-12.4); Monocytes # 1.2 K/mcL (0.0-1.3); Monocytes % 9.6 %; Neutrophils # 9.3 K/mcL (1.6-8.9); Platelet Count 535 K/mcL (140-400); Red Blood Count 2.64 M/mcL (4.19-5.50); Red Cell Distribution Width 13.7 % (11.5-14.5); Segmented Neutrophils % 77.1 %
[2021-12-01] MEDS: Phenytoin 100 MG in Equashield Syringe 1 EACH IVP SCH ×3 (02:13→18:10)
[2021-12-01] MEDS: Piperacillin/Tazobactam 3.375 GM in 0.9 % Sodium Chloride Mini Bag 100 ML IVPB SCH ×4 (02:13→17:18)
[2021-12-01 02:28] LABS: INR 2.2
[2021-12-01 02:31] LABS: Calcium 8.8 mg/dL (8.6-10.3); Magnesium 1.9 mg/dL (1.6-2.6); Phosphorous 3.5 mg/dL (2.7-4.5); Potassium 4.3 mEq/L (3.5-5.1)
[2021-12-01 02:54] LABS: Folate 14.6 ng/mL (3.0-16.0)
[2021-12-01] MEDS: Pantoprazole 40 MG VIAL IVP SCH ×2 (05:52→17:17)
[2021-12-01] MEDS: Morphine Sulfate 2 MG/ML SYRINGE IVP PRN (08:31)
[2021-12-01 08:50] LABS: Hematocrit 23.8 % (37.5-50.1); Hemoglobin 7.6 g/dL (12.9-16.9)
[2021-12-01] MEDS: Doxycycline 100 MG in 0.9 % Sodium Chloride Mini Bag 100 ML IVPB SCH ×2 (09:44→20:20)
[2021-12-01] MEDS ORDERED: Cyanocobalamin (B-12) 1,000 MCG/ML VIAL IM ONE (11:35)
[2021-12-01] MEDS ORDERED: Ondansetron 4 MG/2 ML VIAL ONE (15:17)
[2021-12-01] MEDS ORDERED: EPHEDrine 50 MG/ML VIAL ONE (15:19)
[2021-12-01] MEDS ORDERED: *HR* Succinylcholine 200 MG/10 ML VIAL IVP ONE (15:32)
[2021-12-01] MEDS ORDERED: *HR* FentaNYL (PF) 100 MCG/2 ML VIAL ONE (15:33)
[2021-12-01 18:41] LABS: Hematocrit 24.4 % (37.5-50.1); Hemoglobin 7.7 g/dL (12.9-16.9)
[2021-12-02] MEDS: Insulin LISPRO 300 UNITS/3 ML VIAL SUBQ SCH ×4 (00:26→17:11)
[2021-12-02] MEDS: Phenytoin 100 MG in Equashield Syringe 1 EACH IVP SCH ×3 (02:43→17:12)
[2021-12-02] MEDS: Piperacillin/Tazobactam 3.375 GM in 0.9 % Sodium Chloride Mini Bag 100 ML IVPB SCH ×3 (02:44→17:11)
[2021-12-02] MEDS: Pantoprazole 40 MG VIAL IVP SCH ×2 (05:13→17:10)
[2021-12-02 07:40] LABS: Basophils # 0.1 K/mcL (0.0-0.2); Basophils % 0.8 %; Eosinophils # 0.3 K/mcL (0.0-0.6); Eosinophils % 2.9 %; Hematocrit 21.6 % (37.5-50.1); Hemoglobin 6.9 g/dL (12.9-16.9); Immature Granulocytes % 1.3 % (0-4); Lymphocytes # 1.8 K/mcL (0.6-4.6); Lymphocytes % 16.4 %; Mean Corpuscular HGB Conc 31.9 g/dL (31.6-35.5); Mean Corpuscular Volume 90.8 fL (83.0-100.0); Monocytes # 1.1 K/mcL (0.0-1.3); Monocytes % 10.7 %; Neutrophils # 7.2 K/mcL (1.6-8.9); Platelet Count 547 K/mcL (140-400); Red Blood Count 2.38 M/mcL (4.19-5.50); Red Cell Distribution Width 13.8 % (11.5-14.5); Segmented Neutrophils % 67.9 %; White Blood Count 10.6 K/mcL (4.3-11.1)
[2021-12-02 07:41] LABS: Hematocrit 21.4 % (37.5-50.1); Hemoglobin 6.9 g/dL (12.9-16.9)
[2021-12-02 07:46] LABS: Calcium 8.5 mg/dL (8.6-10.3)
[2021-12-02 08:20] LABS: INR 2.8; Prothrombin Time 31.1 Seconds (9.4-12.1)
[2021-12-02] MEDS: Morphine Sulfate 2 MG/ML SYRINGE IVP PRN (08:43)
[2021-12-02] MEDS: Doxycycline 100 MG in 0.9 % Sodium Chloride Mini Bag 100 ML IVPB SCH ×2 (09:44→23:11)
[2021-12-02] MEDS: Cyanocobalamin (B-12) 1,000 MCG TABLET PO SCH (13:44)
[2021-12-02] MEDS ORDERED: Warfarin perPT PO PRN (18:00)
[2021-12-03 01:41] LABS: Basophils # 0.1 K/mcL (0.0-0.2); Basophils % 0.7 %; Eosinophils # 0.5 K/mcL (0.0-0.6); Eosinophils % 5.1 %; Hematocrit 25.5 % (37.5-50.1); Hemoglobin 8.2 g/dL (12.9-16.9); Immature Granulocytes % 1.3 % (0-4); Lymphocytes # 1.8 K/mcL (0.6-4.6); Mean Corpuscular HGB Conc 32.2 g/dL (31.6-35.5); Mean Corpuscular Hemoglobin 29.2 pg (28.0-33.3); Mean Corpuscular Volume 90.7 fL (83.0-100.0); Mean Platelet Volume 9.9 fL (9.4-12.4); Monocytes # 1.1 K/mcL (0.0-1.3); Monocytes % 11.4 %; Platelet Count 528 K/mcL (140-400); Red Blood Count 2.81 M/mcL (4.19-5.50); Red Cell Distribution Width 14.3 % (11.5-14.5); Segmented Neutrophils % 62.5 %; White Blood Count 9.5 K/mcL (4.3-11.1)
[2021-12-03 01:52] LABS: INR 2.5; Prothrombin Time 27.3 Seconds (9.4-12.1)
[2021-12-03 02:04] LABS: Calcium 8.7 mg/dL (8.6-10.3); Potassium 4.1 mEq/L (3.5-5.1)
[2021-12-03] MEDS: Insulin LISPRO 300 UNITS/3 ML VIAL SUBQ SCH ×4 (02:27→17:42)
[2021-12-03] MEDS: Phenytoin 100 MG in Equashield Syringe 1 EACH IVP SCH ×3 (02:59→17:48)
[2021-12-03] MEDS: Piperacillin/Tazobactam 3.375 GM in 0.9 % Sodium Chloride Mini Bag 100 ML IVPB SCH ×3 (03:00→17:40)
[2021-12-03] MEDS: Pantoprazole 40 MG VIAL IVP SCH ×2 (06:10→17:41)
[2021-12-03] MEDS: Doxycycline 100 MG in 0.9 % Sodium Chloride Mini Bag 100 ML IVPB SCH ×2 (09:55→22:01)
[2021-12-03] MEDS: Cyanocobalamin (B-12) 1,000 MCG TABLET PO SCH (09:56)
[2021-12-03] MEDS ORDERED: *HR* Warfarin 2 MG TABLET PO ONE (18:00)
[2021-12-04] MEDS: Insulin LISPRO 300 UNITS/3 ML VIAL SUBQ SCH ×4 (00:32→17:09)
[2021-12-04] MEDS: Piperacillin/Tazobactam 3.375 GM in 0.9 % Sodium Chloride Mini Bag 100 ML IVPB SCH ×2 (02:16→12:58)
[2021-12-04] MEDS: Phenytoin 100 MG in Equashield Syringe 1 EACH IVP SCH ×2 (02:50→12:58)
[2021-12-04] MEDS: Pantoprazole 40 MG VIAL IVP SCH (07:20)
[2021-12-04 08:17] LABS: Basophils # 0.1 K/mcL (0.0-0.2); Basophils % 0.7 %; Eosinophils # 0.4 K/mcL (0.0-0.6); Eosinophils % 4.6 %; Hematocrit 26.6 % (37.5-50.1); Hemoglobin 8.8 g/dL (12.9-16.9); Immature Granulocytes % 1.2 % (0-4); Lymphocytes # 1.6 K/mcL (0.6-4.6); Mean Corpuscular HGB Conc 33.1 g/dL (31.6-35.5); Mean Corpuscular Hemoglobin 29.9 pg (28.0-33.3); Mean Corpuscular Volume 90.5 fL (83.0-100.0); Mean Platelet Volume 9.8 fL (9.4-12.4); Monocytes # 1.1 K/mcL (0.0-1.3); Monocytes % 12.9 %; Neutrophils # 5.3 K/mcL (1.6-8.9); Platelet Count 518 K/mcL (140-400); Red Blood Count 2.94 M/mcL (4.19-5.50); Red Cell Distribution Width 13.9 % (11.5-14.5); Segmented Neutrophils % 61.6 %; White Blood Count 8.7 K/mcL (4.3-11.1)
[2021-12-04 08:31] LABS: INR 1.7
[2021-12-04 08:33] LABS: BUN/Creatinine Ratio 17 (6-26); Blood Urea Nitrogen 14 mg/dL (8-23); Calcium 8.8 mg/dL (8.6-10.3); Carbon Dioxide 28 mEq/L (23-29); Chloride 106 mEq/L (98-107); Glucose 138 mg/dL (70-105); Osmolality,Calculated 289 (280-300); Potassium 3.9 mEq/L (3.5-5.1); Sodium 138 mEq/L (136-145)
[2021-12-04] MEDS: Cyanocobalamin (B-12) 1,000 MCG TABLET PO SCH (09:01)
[2021-12-04] MEDS: Doxycycline 100 MG CAPSULE PO SCH ×2 (12:46→20:50)
[2021-12-04] MEDS: Doxycycline 100 MG in 0.9 % Sodium Chloride Mini Bag 100 ML IVPB SCH (12:58)
[2021-12-04 16:25] LABS: Adenovirus Not Detected (Not Detect); Bordetella Pertussis Not Detected (Not Detect); Chlamydophila pneumoniae Not Detected (Not Detect); Coronavirus 229E Not Detected (Not Detect); Coronavirus HKU1 Not Detected (Not Detect); Coronavirus NL63 Not Detected (Not Detect); Coronavirus OC43 Not Detected (Not Detect); Human Metapneumovirus Not Detected (Not Detect); Human Rhinovirus/Enterovirus Not Detected (Not Detect); Influenza A Subtype 2009 H1 Not Detected (Not Detect); Influenza B Not Detected (Not Detect); Mycoplasma pneumoniae Not Detected (Not Detect); Parainfluenza Virus 1 Not Detected (Not Detect); Parainfluenza Virus 2 Not Detected (Not Detect); Parainfluenza Virus 3 Not Detected (Not Detect); Parainfluenza Virus 4 Not Detected (Not Detect); Respiratory Syncytial Virus Not Detected (Not Detect)
[2021-12-04 16:29] LABS: SARS-CoV-2 DETECTED (Not Detect)
[2021-12-04] MEDS ORDERED: *HR* Warfarin 4 MG TABLET PO ONE (18:00)
[2021-12-05] MEDS: Insulin LISPRO 300 UNITS/3 ML VIAL SUBQ SCH ×5 (00:45→23:51)
[2021-12-05] MEDS: Cyanocobalamin (B-12) 1,000 MCG TABLET PO SCH (08:10)
[2021-12-05] MEDS: Doxycycline 100 MG CAPSULE PO SCH ×2 (08:10→20:26)
[2021-12-05 09:19] LABS: Basophils # 0.1 K/mcL (0.0-0.2); Basophils % 0.6 %; Eosinophils # 0.5 K/mcL (0.0-0.6); Eosinophils % 3.8 %; Hematocrit 29.2 % (37.5-50.1); Hemoglobin 9.3 g/dL (12.9-16.9); Immature Granulocytes % 1.2 % (0-4); Lymphocytes # 1.4 K/mcL (0.6-4.6); Mean Corpuscular HGB Conc 31.8 g/dL (31.6-35.5); Mean Corpuscular Hemoglobin 29.1 pg (28.0-33.3); Mean Corpuscular Volume 91.3 fL (83.0-100.0); Mean Platelet Volume 9.8 fL (9.4-12.4); Monocytes # 1.4 K/mcL (0.0-1.3); Monocytes % 11.8 %; Neutrophils # 8.3 K/mcL (1.6-8.9); Platelet Count 542 K/mcL (140-400); Red Cell Distribution Width 14.2 % (11.5-14.5); Segmented Neutrophils % 70.6 %; White Blood Count 11.7 K/mcL (4.3-11.1)
[2021-12-05 09:26] LABS: INR 1.6; Prothrombin Time 17.7 Seconds (9.4-12.1)
[2021-12-05 09:36] LABS: BUN/Creatinine Ratio 18 (6-26); Blood Urea Nitrogen 14 mg/dL (8-23); Calcium 8.9 mg/dL (8.6-10.3); Carbon Dioxide 25 mEq/L (23-29); Chloride 105 mEq/L (98-107); Glucose 262 mg/dL (70-105); Osmolality,Calculated 292 (280-300); Potassium 4.2 mEq/L (3.5-5.1); Sodium 136 mEq/L (136-145)
[2021-12-05] MEDS ORDERED: *HR* Warfarin 4 MG TABLET PO ONE (18:00)
[2021-12-06] MEDS ORDERED: tiZANidine 4 MG TABLET PO ONE (00:11)
[2021-12-06] MEDS: Morphine Sulfate 2 MG/ML SYRINGE IVP PRN ×2 (01:49→08:31)
[2021-12-06 04:43] LABS: Basophils # 0.1 K/mcL (0.0-0.2); Basophils % 0.7 %; Eosinophils # 0.5 K/mcL (0.0-0.6); Eosinophils % 5.2 %; Hematocrit 25.7 % (37.5-50.1); Hemoglobin 8.3 g/dL (12.9-16.9); Immature Granulocytes % 1.6 % (0-4); Lymphocytes # 1.5 K/mcL (0.6-4.6); Lymphocytes % 16.2 %; Mean Corpuscular HGB Conc 32.3 g/dL (31.6-35.5); Mean Corpuscular Hemoglobin 29.4 pg (28.0-33.3); Mean Corpuscular Volume 91.1 fL (83.0-100.0); Mean Platelet Volume 10.1 fL (9.4-12.4); Monocytes # 1.3 K/mcL (0.0-1.3); Monocytes % 13.9 %; Neutrophils # 5.7 K/mcL (1.6-8.9); Platelet Count 448 K/mcL (140-400); Red Blood Count 2.82 M/mcL (4.19-5.50); Segmented Neutrophils % 62.4 %; White Blood Count 9.2 K/mcL (4.3-11.1)
[2021-12-06 04:49] LABS: INR 1.9
[2021-12-06 05:01] LABS: BUN/Creatinine Ratio 21 (6-26); Blood Urea Nitrogen 15 mg/dL (8-23); Calcium 8.6 mg/dL (8.6-10.3); Carbon Dioxide 27 mEq/L (23-29); Chloride 104 mEq/L (98-107); Glucose 176 mg/dL (70-105); Osmolality,Calculated 285 (280-300); Potassium 3.9 mEq/L (3.5-5.1); Sodium 135 mEq/L (136-145)
[2021-12-06] MEDS: Insulin LISPRO 300 UNITS/3 ML VIAL SUBQ SCH ×2 (05:35→13:00)
[2021-12-06] MEDS: Cyanocobalamin (B-12) 1,000 MCG TABLET PO SCH (08:17)
[2021-12-06] MEDS: Doxycycline 100 MG CAPSULE PO SCH (08:17)
[2021-12-06 14:32] VITALS: BP 123/70; PULSE 80; TEMP 98.7; O2SAT 98
[2021-12-06] MEDS ORDERED: *HR* Warfarin 2 MG TABLET PO ONE (18:00)
== END 2021-12-06 17:41 | DRG 368 ==
LOC: EMEROOARM 04:03 → 2ANU 04:03 → SUATTDRO 14:03 → 2ANU 15:44
PROVIDERS: ADMIT Internal Medicine; ATTEND Internal Medicine